=== PATIENT | male | born 1960 | race Caucasian/White ===

== ENCOUNTER 2020-01-15 13:42 | Emergency (ER) | payer OTHER, SELFPAY ==
--- NOTE | ~2020-01-15 | XR_ITS ---
XR foot RT 2V DATE: 01/15/2020 14:40 INDICATION: Fall. Pain across all digits. TECHNIQUE: AP and lateral views COMPARISON: None FINDINGS: There are transverse fractures of the necks of the second screw fourth metatarsal bones wit h minimal displacement or angulation. There is a linear oblique fracture through the junction of the metaphysis and proximal shaft of the proximal phalanx of the fifth digit. Diffuse osteopenia. Osteoarthritis at first metatarsophalangeal joint. Diffuse osteopenia. Plantar and posterior calcaneal enthesopathy. Plate and screws along the lateral malleolus and 2 screws through the medial malleolus. IMPRESSION: Fractures of the second through fourth metatarsal necks and fracture of the proximal phal anx of the fifth digit Reviewed, dictated and finalized at location A. IMPRESSION: Fractures of the second through fourth metatarsal necks and fractur e of the proximal phalanx of the fifth digit
--- NOTE | ~2020-01-15 | XR_ITS ---
XR ankle RT 2V DATE: 01/15/2020 14:40 INDICATION: Fall. Ankle and foot injury. TECHNIQUE: AP and lateral views COMPARISON: None FINDINGS: 2 screws are noted extending longitudinally through the medial malleolus into the distal ti bial metaphysis. There is a plate and screws along the distal fibular shaft and lateral malleolus. No recent fracture or dislocation of the ankle or disruption of the ankle mortise is evident. Plantar and posterior calcaneal enthesopathy. IMPRESSION: Status post ORIF old medial and lateral malleolar fractures Plantar and posterior calcaneal enthesopathy No recent fracture or dislocation of the ankle Reviewed, dictated and finalized at location A.
[2020-01-15 13:42] VITALS: BP 129/77; PULSE 89; RESP 16; TEMP 36.7; O2SAT 97
--- NOTE | 2020-01-15 14:00 | ECG_ITS ---
Measurements Intervals [place] Rate: 81 P: 50 SD: 152 QRS: 77 QRSD: 94 T: 20 QT: 344 QTc: 400 Interpretive Statements SINUS RHYTHM BASELINE ARTIFACT- I, II, III, AVR, AVL, AVF, V1-V6 BORDERLINE ECG Electronically Signed On 01-17-2020 7:15:53 CDT by Laith Peña D.O.
[2020-01-15] MEDS: KETOROLAC (*BKC) 60 MG/2 ML VIAL IM (14:14)
[2020-01-15 14:36] VITALS: BP 111/70; PULSE 85; RESP 14; O2SAT 97
--- NOTE | 2020-01-15 15:04 | ED.LOWEXIN ---
HPI - Extremity Injury (Lower) General Chief Complaint: Extremity Injury, Lower Stated Complaint: Hurt foot History of Present Illness HPI Narrative: This is a 59-year-old male with a chronic history of syncope is on my to drain had event earlier this morning at around 3:00 a.m. and fell causing pain swelling and bruising to the right foot and ankle, patient having pain rates about 8/10, with decreased range of motion in his foot and toes secondary to swelling and bruising. Patient denies any chest pain, there is no shortness of breath no headaches no blurry vision no nausea vomiting no abdominal pain. MD complaint: ankle injury and foot injury Onset (ago): hour(s) Type of Injury: inversion and eversion Place: home Severity: moderate Severity scale (1-10): 8 Relieving factors: NSAID and cold therapy Exacerbating factors: nothing Context: fall and walking Associated symptoms: swelling and able to partially bear weight Other symptoms: none Related Data Home Medications Medication Instructions Recorded Confirmed apixaban [Eliquis] 5 mg PO BID 01/15/20 01/15/20 duloxetine 60 mg PO DAILY 01/15/20 01/15/20 midodrine 10 mg PO TID 01/15/20 01/15/20 pantoprazole 20 mg PO QAM 01/15/20 01/15/20 Allergies Allergy/AdvReac Type Severity Reaction Status Date / Time No Known Allergies Allergy Unknown Unverified 09/16/08 08:15 Review of Systems Review of Systems: All systems reviewed & are unremarkable except as noted in HPI and below [facility] Past Medical History Medical History Syncope due to orthostatic hypotension Exam Const: General: no acute distress and alert Orientation/consciousness: patient oriented x3 HENMT: Head: normal to inspection Eyes: Conjunctivae: conjunctivae normal Pupils: Equal, round and reactive pupils present Neck: Neck: normal visual inspection, no lymphadenopathy and no meningeal signs Chest: Chest palpation & inspection: normal inspection of the chest Resp: Effort & Inspection: normal respiratory effort Auscultation: clear to auscultation bilaterally Cardio: Rate: regular rate Rhythm: regular rhythm GI: GI Palp: Yes Soft to palpation Back/Spine/Pelvis: Back: no CVA tenderness Skin: General skin exam: normal color Wounds: wounds noted ( Swelling and bruising to his right foot) Neuro: General: patient oriented x3, moves all extremities and no meningeal signs Extrem: General: normal to inspection Psych: Mental Status: mental status grossly normal Course Course Emergency Course: reassessment of patient pain level is improved discussed the x-ray results with fractures to his foot and patient was agreeable to go home with boot and follow-up with his orthopedic doctor. Vital Signs Vital signs: Vital Signs Temperature 36.7 C 01/15/20 13:42 Pulse Rate 89 01/15/20 13:42 Respiratory Rate 16 01/15/20 13:42 Blood Pressure 129/77 01/15/20 13:42 Pulse Oximetry 97 01/15/20 13:42 Temperature 36.7 C 01/15/20 13:42 Pulse Rate 85 01/15/20 14:36 Respiratory Rate 14 01/15/20 14:36 Blood Pressure 111/70 01/15/20 14:36 Pulse Oximetry 97 01/15/20 14:36 MDM - Extremity Injury (Lower) ECG Data EKG #1: ECG completion date: 01/15/20 ECG completion time: 14:18 Prior ECG tracings: not available for review EKG Interpretation: normal rate Critical Care Time Critical Care Time Critical Care Time: No Discharge Plan Discharge Clinical Impression: Foot fracture, right Qualifiers: Encounter type: initial encounter Fracture type: closed Qualified Code(s): S92.901A - Unspecified fracture of right foot, initial encounter for closed fracture Patient Disposition: Home, Self-Care Condition: Stable Instructions: Antibiotic Form, Foot Fracture in Adults (ED) Additional Instructions: Take medicine as prescribed and follow-up with orthopedic doctor on Friday. Prescriptions:
== END 2020-01-15 15:31 | disposition home or self-care (01) ==
PROVIDERS: Emergency Provider Emergency Medicine; PCP Family Medicine
DX: S92.901A Unspecified fracture of right foot, initial encounter for closed fracture (principal); W19.XXXA Unspecified fall, initial encounter
CPT/HCPCS: 73600; 73620; 93005; 96372; 99283; 99284; J1885; L2112

== ENCOUNTER 2020-06-15 14:19 | Inpatient (IN) | payer OTHER, SELFPAY ==
[2020-06-15] VITALS (27 sets, daily range): BP systolic 86–128; BP diastolic 64–102; PULSE 68–82; RESP 10–27; TEMP 36.1–36.3; O2SAT 85–100; BMI 34.6
--- NOTE | ~2020-06-15 | XR_ITS ---
EXAMINATION: XR knee LT 2V DATE: 06/15/2020 18:25 INDICATION: Left knee pain. Fall. TECHNIQUE: 2 views of left knee were obtained. COMPARISON: None. FINDINGS: Bone alignment is normal. No fracture. There is moderate osteoarthritis of medial compartme nt and mild osteoarthritis of lateral and patellofemoral compartments. There is a small knee joint ef fusion. IMPRESSION: 1. Moderate left knee osteoarthritis. 2. Small left knee joint effusion. Reviewed, dictated and finalized at location A. INE COMPOSITOR
--- NOTE | ~2020-06-15 | MR_ITS ---
EXAMINATION: MR cervical spine wo/w con EXAM DATE: 06/16/2020 12:46 INDICATION: Paresthesias, fall, on Eliquis. TECHNIQUE: Multi-sequential, multiplanar MR images of the cervical spine were obtained without contra st. Axial T2, axial T2 MERGE sequence. Sagittal T1, T2, T2 fat saturation images also obtained. Axi al T1 weighted sequence. Patient was then injected with 20 mL Multihance intravenous contrast and re imaged. Postcontrast axial and sagittal T1-weighted fat saturation sequences were obtained. There i s no prior study for comparison. FINDINGS: Study is limited due to patient motion. The spinal cord signal intensity and intrinsic mor phology is normal. Cervicomedullary junction is normal in appearance. There is evidence of moderate cervical facet arthropathy, but only mild cervical disc disease. Can't confidently evaluate degree o f stenosis to the neural foramen, but the central canal is widely patent, and probably no more than m ild to moderate neural foraminal stenosis at any given level. No definite areas of abnormal enhanceme nt. The vertebral bodies are aligned in the AP dimension. There are no suspicious marrow signal abnor malities. IMPRESSION: Limited exam demonstrating mild to moderate cervical spondylosis, normal cord signal. No central canal stenosis. Reviewed, dictated and finalized at location B. IMPRESSION: Limited exam demonstrating mild to moderate cervical spondylosis, n ormal cord signal. No central canal stenosis.
--- NOTE | ~2020-06-15 | MR_ITS ---
EXAMINATION: MR brain/brain stem wo/w con EXAM DATE: 06/16/2020 12:46 INDICATION: Fullness and tightness in head. Dizziness. Fall. Stroke. TECHNIQUE: Magnetic resonance imaging (MRI) of the brain/brain stem obtained without contrast. Sagit taisha T1, axial diffusion, gradient echo (T2*), T1, T2, FLAIR sequences obtained. Patient was then inj ected with 20 cc intravenous Multihance contrast. Axial and coronal postcontrast T1 weighted sequence s obtained. Correlation is made to head CT obtained earlier. FINDINGS: There are no areas of restricted diffusion to suggest acute infarction. There is no acute hemorrhage seen on the T2*, a hemosiderin sensitive sequence. No intraparenchymal brain mass lesion. Small region of old left temporal lobe encephalomalacia. There is mild prominence of the sulci and v entricles related to cerebral atrophy. There are no extra-axial collections. Flow voids are seen i n the cerebral arteries on the T2-weighted sequences consistent with their expected patency. The orb its are unremarkable. Soft tissue is unremarkable. IMPRESSION: 1. Small left temporal encephalomalacia. 2. Cerebral atrophy. Reviewed, dictated and finalized at location B. TERING FILTERING SUPERVISOR
--- NOTE | ~2020-06-15 | MR_ITS ---
EXAMINATION: MR lumbar spine wo/w con EXAM DATE: 06/16/2020 12:46 INDICATION: Low back pain TECHNIQUE: Multi-sequential, multiplanar MR images of the lumbar spine were obtained without contrast . Sagittal T1, T2, T2 fat saturation images. Axial T2 weighted images. Axial T1 weighted sequence. Patient was then injected with 20 mL Multihance intravenous contrast and reimaged. Postcontrast axi al and sagittal T1-weighted fat saturation sequences were obtained. There is no prior study for jean-claude corcoran. FINDINGS: There are no areas of abnormal enhancement on the post contrast images. The conus medullari s terminates at the T12-L1 level and has normal signal intensity and morphology. The vertebral carlos s are aligned in the AP dimension. Mild lumbar disc disease. There are no suspicious marrow signal ab normalities. Paraspinal soft tissue is unremarkable. Level by level evaluation: T12-L1: Disc does not extend beyond the endplate margin. Facet arthropathy: Mild left. Neural foraminal stenosis: No stenosis. Central canal stenosis: No stenosis. L1-L2: There is a mild diffuse disc bulge. Facet arthropathy: Mild. Neural foraminal stenosis: No stenosis. Central canal stenosis: No stenosis. L2-L3: There is a mild diffuse disc bulge. Facet arthropathy: Mild. Neural foraminal stenosis: Mild to moderate right, mild left. Central canal stenosis: No stenosis. L3-L4: There is a mild diffuse disc bulge. Facet arthropathy: Mild. Neural foraminal stenosis: Mild to moderate left, mild right. Central canal stenosis: No stenosis. L4-L5: There is a mild diffuse disc bulge. Facet arthropathy: Mild. Neural foraminal stenosis: Mild to moderate left, mild right. Central canal stenosis: No stenosis. L5-S1: There is a mild diffuse disc bulge. Facet arthropathy: Mild. Neural foraminal stenosis: Mild to moderate bilateral. Central canal stenosis: No stenosis. IMPRESSION: 1. Mild to moderate multilevel neural foraminal stenosis. 2. No acute findings. Reviewed, dictated and finalized at location B. OSTAT OPERATOR
--- NOTE | ~2020-06-15 | CT_ITS ---
EXAMINATION: CT brain wo con EXAM DATE: 06/15/2020 14:39 INDICATION: Dizziness. Left hemiparesis. TECHNIQUE: Spiral CT of the head was performed without contrast. Axial, coronal and sagittal images were reviewed. The dose-length product (DLP) for this examination was 605.33 mGy-cm. The exposure w as tailored according to patient size, and iterative reconstruction (ASIR) was used as additional dos e reduction technique. Comparison is made to prior examination from 10/11/2017. FINDINGS: Previously seen left temporal intraparenchymal hematoma has resolved, with some encephaloma lacia in the region. There is no acute intraparenchymal hemorrhage. No evidence of intraparenchymal brain mass lesion. No evidence of acute infarction. Please note that initial head CT has limited se nsitivity for small or acute infarctions. There is mild periventricular and subcortical hypodensity, nonspecific but probably related to small vessel ischemic disease. There is mild to moderate promin ence of the sulci and ventricles related to cerebral atrophy. There is intracranial carotid arterio sclerosis. There are no extra-axial collections. There is no mass effect or midline shift. The orb its are unremarkable. Soft tissue is unremarkable. The visualized sinuses and mastoid air cells are well aerated. IMPRESSION: 1. Small region left temporal encephalomalacia. 2. Chronic age related findings. Reviewed, dictated and finalized at location B. CHIPPER
--- NOTE | ~2020-06-15 | US_ITS ---
EXAMINATION: US carotid duplex BI EXAM DATE: 06/16/2020 11:58 INDICATION: Fullness, tightness in head. Stroke like symptoms. Intracranial arterial sclerosis. TECHNIQUE: Grayscale, color and pulsed Doppler images of the cervical carotid arteries were obtained . The degree of vessel stenosis is placed in one of the following categories: normal, <50% stenosis, 50-69% stenosis, >=70% stenosis but less than near-occlusion, near-occlusion, or occlusion. Note that percent stenosis relative to normal distal artery lumen diameter is indirectly measured from velocit y measurements as described by Rush, et al. Radiology 2003; 229:340-346. There is no prior study fo r comparison. FINDINGS: RIGHT SIDE: Right common carotid artery peak systolic velocity (PSV in cm/s): 100 Right bulb/internal carotid artery peak systolic velocity (PSV in cm/s): 70 Right internal carotid artery end diastolic velocity (EDV in cm/s): 29 Right ICA/CCA peak systolic ratio: 0.7 Right external carotid artery peak systolic velocity (PSV in cm/s): 79 Right vertebral artery antegrade flow: yes There is no focal plaque identified. LEFT SIDE: Left common carotid artery peak systolic velocity (PSV in cm/s): 132 Left bulb/internal carotid artery peak systolic velocity (PSV in cm/s): 96 Left internal carotid artery end diastolic velocity (EDV in cm/s): 36 Left ICA/CCA peak systolic ratio: 0.7 Left external carotid artery peak systolic velocity (PSV in cm/s): 66 Left vertebral artery antegrade flow: yes There is no focal plaque identified. IMPRESSION: 1. Normal right internal carotid artery. 2. Normal left internal carotid artery. > Reviewed, dictated and finalized at location B. HICS EDITOR
--- NOTE | ~2020-06-15 | CT_ITS ---
EXAMINATION: CT brain wo con EXAM DATE: 06/16/2020 10:49 INDICATION: pt c/o fullness and tightness in head . TECHNIQUE: Spiral CT of the head was performed without contrast. Axial, coronal and sagittal images were reviewed. The dose-length product (DLP) for this examination was 681.00 mGy-cm. The exposure w as tailored according to patient size, and iterative reconstruction (ASIR) was used as additional dos e reduction technique. Comparison is made to prior examination from 06/15/2020. FINDINGS: Again there is small region of left temporal encephalomalacia. There is no acute intraparen chymal hemorrhage. No evidence of intraparenchymal brain mass lesion. No evidence of acute infarcti on. Please note that initial head CT has limited sensitivity for small or acute infarctions. There i s mild periventricular and subcortical hypodensity, nonspecific but probably related to small vessel ischemic disease. There is mild to moderate prominence of the sulci and ventricles related to cereb ral atrophy. There is intracranial carotid arteriosclerosis. There are no extra-axial collections. There is no mass effect or midline shift. The orbits are unremarkable. Soft tissue is unremarkabl e. The visualized sinuses and mastoid air cells are well aerated. There is no interval change. IMPRESSION: 1. No acute intracranial findings. 2. Chronic age related findings. Reviewed, dictated and finalized at location B. DER OPERATOR
--- NOTE | ~2020-06-15 | XR_ITS ---
EXAMINATION: XR chest 1V INDICATION: Dizziness and chest heaviness TECHNIQUE: AP view of the chest is obtained. COMPARISON: 10/11/2017 FINDINGS: The lungs are free of acute opacities. There is no pleural effusion or pneumothorax. The ca rdiomediastinal silhouette is normal. There is mild osteoarthritis of the shoulders. IMPRESSION: 1. No acute cardiopulmonary abnormality. Reviewed, dictated and finalized at location A. ORIGINATOR
--- NOTE | 2020-06-15 14:24 | ECG_ITS ---
Measurements Intervals [place] Rate: 78 P: 63 RI: 145 QRS: 70 QRSD: 102 T: 15 QT: 373 QTc: 427 Interpretive Statements SINUS RHYTHM BORDERLINE ST-T WAVE ABNORMALITY- INFERIOR LEADS BASELINE ARTIFACT- I, II, III, AVR, AVL, AVF, V1-V3, V5-V6 BORDERLINE ECG Electronically Signed On 06-15-2020 15:28:42 RN CARDIAC by Laith Peña D.O.
[2020-06-15 14:35] LABS: Basophils Percent Auto 0.6 % (0.2-1.2); Eosinophils Absolute Auto 0.2 K/mm3 (0-0.3); Hematocrit 39.6 % (42.0-52.0); Immature Granulocyte Absolute 0.01 K/mm3 (0.00-0.031); Immature Granulocyte Percent A 0.1 % (0-0.5); Lymphocytes Absolute Auto 1.88 K/mm3 (0.9-3.2); Lymphocytes Percent Auto 26.9 % (18.3-44.2); Mean Corpuscular HGB Conc 35.4 g/dl (32-36); Mean Corpuscular Hemoglobin 35.8 pg (26-34); Mean Corpuscular Volume 101.3 fl (80-100); Mean Platelet Volume 8.8 fl (7.4-10.4); Monocytes Absolute Auto 0.8 K/mm3 (0.1-0.6); Neutrophils Percent Auto 57.4 % (45.5-73.1); Platelet Count Result 191 k/mm3 (150-375); Red Blood Count 3.91 M/mm3 (4.6-6.20); Red Cell Distribution Width 13.1 % (11.5-14.5)
[2020-06-15 14:43] LABS: Prothrombin Time 14.1 Seconds (11.1-14.7)
[2020-06-15 14:45] LABS: Alanine Aminotransferase 16 U/L (4-50); Albumin Level 3.6 g/dL (3.5-5.1); Alkaline Phosphatase 75 U/L (38-126); Anion Gap 3 mmol/L (8-16); Aspartate Amino Transferase 30 U/L (17-59); Bilirubin,Total 0.9 mg/dL (0.2-1.3); Blood Urea Nitrogen 13 mg/dL (9-20); Calcium 8.7 mg/dL (8.4-10.2); Carbon Dioxide 31 mmol/L (22-30); Chloride 101 mmol/L (98-107); Estimated CRCL calculation 91 ml/min; Estimated Glomerular Filt Rate > 60; Glucose 110 mg/dL (75-110); Potassium 3.5 mmol/L (3.4-5.0); Sodium 135 mmol/L (137-145)
[2020-06-15 14:57] LABS: Troponin I < 0.012 ng/mL (0.000-0.034)
[2020-06-15 15:17] LABS: Ethanol < 10 mg/dL (<10)
--- NOTE | 2020-06-15 16:40 | ED.NEUROSD ---
HPI - Neuro Symptoms/Deficit General Chief Complaint: Suspected CVA Stated Complaint: CVA resovled Source: patient and EMS Mode of arrival: EMS Limitations: no limitations History of Present Illness HPI Narrative: 59-year-old with a history of hypertension ,alcohol use, gastric Orel-en-Y surgery PE, DVT on Eliquis, CVA here with complaints of dizziness since morning associated with left upper extremity weakness and slurring of speech. Patient states that he had a fall last evening in front of his home denies any loss of consciousness however he states that he felt extremely dizzy after the fall and could not get the words out. He presently denies any headache. No history of nausea or vomiting or visual problems. He states that on his way to the ER his symptoms resolved. Onset (ago): hour(s) (1) Last Observed Normal: 13:00 Location: left arm Severity: moderate Quality: weak Relieving factors: none Exacerbating factors: none Context: sudden onset On Anticoagulants: Yes Related Data Home Medications Medication Instructions Recorded Confirmed apixaban [Eliquis] 5 mg PO BID 01/15/20 01/15/20 armodafinil 200 mg PO QAM 06/15/20 buspirone 10 mg PO BID 06/15/20 escitalopram oxalate 10 mg PO DAILY 06/15/20 ferrous sulfate 325 mg PO BID 06/15/20 fluoxetine 10 mg PO DAILY 06/15/20 pantoprazole 40 mg PO QAM 06/15/20 trazodone 100 mg PO HS 06/15/20 Allergies Allergy/AdvReac Type Severity Reaction Status Date / Time No Known Allergies Allergy Unknown Unverified 06/15/20 14:31 Review of Systems Review of Systems: All systems reviewed & are unremarkable except as noted in HPI and below Constitutional: Constitutional: Reports as per HPI Eyes: Eyes: Reports no additional eye complaints ENT: Reports as per HPI Cardiovascular: Cardiovascular: Reports no additional cardiovascular complaints Respiratory: Respiratory: Reports no additional respiratory complaints Musculoskeletal: Musculoskeletal: Reports no additional musculoskeletal complaints Neurologic: Reports as per HPI Endocrine: Endocrine: Reports no additional endocrine complaints PMFSH Past Medical History Medical History (Updated 06/15/20 @ 16:55 by Bal Finney MD) Syncope due to orthostatic hypotension Exam Narrative: Exam Narrative: GENERAL: Well-appearing, well-nourished, and in no acute distress. HEAD: Normocephalic, atraumatic. EYES: PERRLA and EOMI. ENT: Nares clear, no rhinorrhea or epistaxis. Mucous membranes moist. NECK: Supple. CHEST: Clear to auscultation. No respiratory distress. HEART: Regular rate and rhythm. No murmur heard. Normal peripheral pulses. ABDOMEN: Soft, nontender, nondistended, normal active bowel sounds. Right upper abdomen surgical scar EXTREMITIES: Normal range of motion. No edema. SKIN: Warm, dry, no rash. NEURO: No focal deficits. Alert and oriented x3. PSYCH: Normal mood and affect. Course Course Emergency Course: Patient still remains asymptomatic at this time I discussed labs, CT findings with the patient also discussed with Dr. Cyr recommended admission for observation. Discussed with Juliet who accepted the patient Vital Signs Vital signs: Vital Signs Temperature 36.3 C L 06/15/20 14:20 Pulse Rate 71 06/15/20 14:20 Respiratory Rate 17 06/15/20 14:20 Blood Pressure 101/90 06/15/20 14:20 Pulse Oximetry 100 06/15/20 14:20 Temperature 36.3 C L 06/15/20 14:20 Pulse Rate 71 06/15/20 14:20 Respiratory Rate 17 06/15/20 14:20 Blood Pressure 101/90 06/15/20 14:20 Pulse Oximetry 100 06/15/20 14:20 MDM - Neuro Symptoms/Deficit Lab Data Result diagrams: 06/15/20 14:27 06/15/20 14:27 Labs: Lab Results 06/15/20 06/15/20 06/15/20 Range/Units 14:27 14:27 14:27 WBC 7.0 (4.5-10.0) K/mm3 RBC 3.91 L (4.6-6.20) M/mm3 Hgb 14.0 (14.0-18.0) g/dL Hct 39.6 L (42.0-52.0) % MCV 101.3 H (80-100) fl MCH 35.8 H (26-3
--- NOTE | 2020-06-15 17:49 | PM.IMHP ---
H&P: HPI History of Present Illness Date/Time: 06/15/20 17:49 Chief complaint: CVA resovled Narrative: Johnie Mcqueen is a 59 year old male who has a history of having TIA and he stated that he had a CVA in the past. The patient told me that he was walking home on a sidewalk yesterday when he noticed that there was some gravelly substance on the sidewalk. Patient walks is pathway quite frequently but it was dark and could not see what was on the sidewalk. The patient stated that he slid on something and so his feet fly up in the air and he fell back onto his back and hit his head. The patient is on Eliquis. The patient stated that he went to the police department to have a incident report made but was not able to do so he said this occurred in [place]. The patient really did not have any symptoms yesterday but today he noticed that he had numbness and tingling to both of his arms he complained of back pain ear both of his kidneys. Left knee pain and neck pain. The patient did not take anything for discomfort. He stated that he had lower back pain and pain around his kidneys. The patient stated he felt like he was having stroke-like symptoms. No nodules were noted on his head. Patient stated that he is being seen for dizziness and that he just had a tilt-table test. The patient does have lateral nystagmus. However the patient stated he was not feeling dizzy last night. He had no nausea vomiting. No fever no chills. He stated that he had a ground level fall and that he had slipped on the substance that was on the sidewalk. Patient has no double vision but felt like he was having difficulty talking today. He said that he was stuttering today and his words were slurred. He had no focal weakness but his arms felt numb and tingling bilaterally he also stated that his right leg felt numbness and tingling as well. His chest x-ray was read as no acute cardiopulmonary abnormality. Head CT was read as small region left temporal encephalomalacia. Chronic age-related findings. Patient has no neurological deficits at this time. No problems with his vision. No focal weakness. Patient denies having any alcohol recently. His alcohol level was negative. Patient is being admitted observation date of service 06/15/2020 Review of Systems Review of Systems: All systems reviewed & are unremarkable except as noted in HPI and below Constitutional: Constitutional: Reports as per HPI and Reports no additional constitutional complaints Eyes: Eyes: Reports as per HPI and Reports no additional eye complaints ENT: Reports system reviewed and no additional complaints, except as documented and Reports Normal hearing present Cardiovascular: Cardiovascular: Reports no additional cardiovascular complaints Respiratory: Respiratory: Reports no additional respiratory complaints and Reports no additional respiratory complaints Gastrointestinal: Gastrointestinal: Reports as per HPI and Reports no additional gastrointestinal complaints Musculoskeletal: Musculoskeletal: Reports no additional musculoskeletal complaints Integumentary/Breasts: Skin/Breast: Reports system reviewed and no additional complaints, except as docu and Reports as per HPI Neurologic: Reports system reviewed and no additional complaints, except as documented, Reports as per HPI and Reports Normal hearing present Psychiatric: Psychiatric: Reports no additional psychiatric complaints and Reports as per HPI Endocrine: Endocrine: Reports no additional endocrine complaints Hematologic/Lymphatic: Hematologic/Lymphatic: Reports no additional hematologic/lymphatic complaints Allergic/Immunologic: Allergic/Immunologic: Reports no additional allergic/immunologic complaints [facility] Past Medical History Medical History (Updated 06/15/20 @ 17:58 by Juliet Sandoval NP) Anxiety Brain TIA History of deep vein thrombosis History of fracture of clavicle Iron deficiency anemia Peripheral vascular
--- NOTE | 2020-06-15 19:30 | ADMGEN ---
This patient, Johnie Mcqueen, was admitted to Medical Room 345-. Patient/family oriented to hospital policies and general routines including ID bracelet, bed and alarms, visiting hours, pain management, procedures, bathroom and other care routines, personal items, smoking policy, room service/diet, and visiting hours. Information on how to activate the Rapid Response Team has been discussed. Patient/Family are encouraged to report perceived risks to care and to ask questions if they do not understand what they are told or what they should do.
[2020-06-15] MEDS: MORPHINE SULFATE (*CRX) 4 MG/ML INJ IV PUSH ×2 (20:03→23:54)
[2020-06-15 20:21] LABS: Folic Acid 13.7 ng/mL (2.76->20)
[2020-06-15] MEDS: traZODone HCL 50 MG TABLET 100 MG PO (20:53)
[2020-06-16] VITALS (10 sets, daily range): BP systolic 98–119; BP diastolic 63–67; PULSE 68–97; RESP 14–16; TEMP 36.1–36.2; O2SAT 97–99
--- NOTE | 2020-06-16 | ECHO_ITS ---
Patient Info Name: Johnie Mcqueen Age: 59 years : 1960 Gender: Male Ht: 72 in Wt: 254 lbs BSA: 2.46 m2 HR: 85 bpm BP: 128 / 70 mmHg Heart Rhythm: Sinus Rhythm Technical Quality: Fair Exam Date: 06/16/2020 1:36 PM Exam Location: [facility] Patient Status: Outpatient Admit Date: 06/15/2020 Staff Ordering Physician: Juliet Sandoval NP Grid Inspector: Wayne Trejo RDCS Attending Provider: Audelia Noriega PA-C Referring Physician: Lori FINCH; Exam Type: CA echo dop bubble study w con Study Info Indications 436.0 - CVA Complete two-dimensional, color flow and Doppler transthoracic echocardiogram is performed with contrast to opacify the left ventricle and to improve the deliniation of the left ventricle endocardial borders. Complete two-dimensional, color flow and Doppler transthoracic echocardiogram is performed with agitated saline. Contrast/Agitated Saline Contrast/Ag. Saline: Definity Amount: 3.00 ml Administered By: Zakia Hinds RN Existing IV Access: Yes Contrast/Ag. Saline: Agitated Saline Amount: 18.00 ml Administered By: Zakia Hinds RN Existing IV Access: Yes History/Risk Factors Stroke like symptoms; syncope, orthostatic HoTN. Summary 1. Left ventricular chamber dimension is normal. 2. Left ventricular systolic function is normal, estimated at 60-65%. 3. The left ventricular diastolic function is grade I diastolic dysfunction. 4. E/e' 4 is not elevated. Left Ventricle E/e' 4 is not elevated. Left ventricular chamber dimension is normal. Left ventricular systolic function is normal, estimated at 60-65%. The left ventricular diastolic function is grade I diastolic dysfunction. Right Ventricle Right ventricular chamber dimension is normal. Right ventricular systolic function is normal. Left Atria Left atrial chamber dimension is normal. Right Atria Right atrial chamber dimension is normal. Atrial Septum Agitated saline injection with and without valsalva maneuver opacified right sided cardiac chamber without obvious shunt to left sided cardiac chambers. Intact interatrial septum visualized by agitated saline imaging. Aortic Valve The aortic valve is trileaflet. There is no aortic valve stenosis. There is no aortic valve regurgitation. Pulmonic Valve The pulmonic valve is not well visualized. Mitral Valve There is no mitral valve stenosis. There is no mitral valve regurgitation. Tricuspid Valve There is no tricuspid valve regurgitation. Pericardium/Pleural There is no pericardial effusion. Inferior Vena Cava Normal inferior vena cava with >50% collapse upon inspiration consistent with normal right atrial pressure, 5 mmHg. Aorta The aortic root size at the sinus of Valsalva is normal. Left Ventricular Outflow Tract Name Value Normal LVOT 2D LVOT Diameter 2.5 cm Mitral Valve Name Value Normal MV Doppler
[2020-06-16 06:11] LABS: Basophils Percent Auto 0.7 % (0.2-1.2); Eosinophils Absolute Auto 0.2 K/mm3 (0-0.3); Eosinophils Percent Auto 3.4 % (0-4.4); Hematocrit 37.1 % (42.0-52.0); Immature Granulocyte Absolute 0.02 K/mm3 (0.00-0.031); Immature Granulocyte Percent A 0.3 % (0-0.5); Lymphocytes Absolute Auto 1.54 K/mm3 (0.9-3.2); Lymphocytes Percent Auto 25.2 % (18.3-44.2); Mean Corpuscular Hemoglobin 35.8 pg (26-34); Mean Corpuscular Volume 102.2 fl (80-100); Monocytes Absolute Auto 0.6 K/mm3 (0.1-0.6); Monocytes Percent Auto 10.1 % (2.6-8.5); Neutrophils Absolute Auto 3.7 K/mm3 (1.3-6.7); Neutrophils Percent Auto 60.3 % (45.5-73.1); Platelet Count Result 173 k/mm3 (150-375); Red Blood Count 3.63 M/mm3 (4.6-6.20); Red Cell Distribution Width 12.9 % (11.5-14.5); White Blood Count 6.1 K/mm3 (4.5-10.0)
[2020-06-16 06:22] LABS: Alanine Aminotransferase 27 U/L (4-50); Albumin Level 3.2 g/dL (3.5-5.1); Alkaline Phosphatase 94 U/L (38-126); Anion Gap 5 mmol/L (8-16); Aspartate Amino Transferase 113 U/L (17-59); Bilirubin,Total 1.3 mg/dL (0.2-1.3); Blood Urea Nitrogen 11 mg/dL (9-20); Calcium 8.3 mg/dL (8.4-10.2); Carbon Dioxide 31 mmol/L (22-30); Chloride 103 mmol/L (98-107); Estimated CRCL calculation 101 ml/min; Estimated Glomerular Filt Rate > 60; Glucose 97 mg/dL (75-110); Magnesium 1.9 mg/dL (1.6-2.3); Potassium 3.3 mmol/L (3.4-5.0); Sodium 139 mmol/L (137-145)
[2020-06-16 07:09] LABS: Thyroid Stimulating Hormone Reflex 0.803 uIU/mL (0.465-4.68)
[2020-06-16] MEDS: FERROUS SULFATE 324 MG TABLET PO ×2 (08:26→17:35)
[2020-06-16] MEDS: POTASSIUM CHLORIDE 20 MEQ TABLET 40 MEQ PO (08:26)
[2020-06-16] MEDS: PANTOPRAZOLE 40 MG TABLET PO (08:26)
[2020-06-16] MEDS: FLUoxetine HCL 10 MG CAPSULE PO (08:26)
--- NOTE | 2020-06-16 10:37 | WPDNEURCNPN ---
Assessment and Plan Assessment and plan (1) Anxiety: Code(s): F41.9 - Anxiety disorder, unspecified Status: Chronic (2) Brain TIA: Code(s): G45.9 - Transient cerebral ischemic attack, unspecified Status: Acute (3) Syncope due to orthostatic hypotension: Code(s): I95.1 - Orthostatic hypotension Status: Acute Additional Plan considering the history of the TIA further evaluation recommended Consult date: 06/16/20 Time Seen: 10:15 HPI: Johnie Mcqueen is a 59 year old male admitted to the hospital with history of having had TIA in the past reportedly he was walking on the sidewalk he is sedated on something feet fly up in the air he fell backwards on his back and hit his head patient reportedly is on Eliquis he made the incident report at the [employer] office complaint of numbness and tingling in both upper extremities and the back pain left knee pain and neck pain no swelling was noted on the patient's head but he was complaining of dizziness without nausea or vomiting, patient does have ongoing history of anxiety and TIA in addition to the DVT in the past and also iron deficiency anemia and at times syncopal episode due to orthostatic hypotension. Evaluation up until now includes the CT scan of the brain which revealed small left temporal encephalomalacia with chronic age-related finding, chest x-ray is negative, left knee x-rays the compatible with moderate left knee osteoarthritis with small left knee joint effusion Review of Systems Review of Systems: All systems reviewed & are unremarkable except as noted in HPI and below PMFSH Past Medical History Medical History Anxiety Brain TIA History of deep vein thrombosis History of fracture of clavicle Iron deficiency anemia Peripheral vascular disease Syncope due to orthostatic hypotension Surgical History Surgical History History of ankle surgery ORIF right ankle tib-fib fracture History of gastric bypass Hx laparoscopic cholecystectomy Hx of cholecystectomy S/P arthroscopic surgery of left knee Family History Family History Mother Breast cancer Father Suicide Social History Social History Social History: the patient is . 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 He has 3 biological children 1 being a special needs child. Who is 11 years old. The patient is working on getting disability. The patient stated that he wants his sister Leti to be his durable power consumer attorney for healthcare. He desires to be a full code. He denies using any alcohol. He said that he had to go to rehab in the past for alcohol abuse but only drinks once or twice a week any drinks beer. He is a lifelong nonsmoker does needs any marijuana or illicit drugs. Smoking status: Never smoker Alcohol intake: current Drinks per week: 6 Substance use: never Living arrangements: with family Occupation/Education: unemployed Gender identity (if verbalized by the patient): Male Sexual Orientation (if Verbalized by the Patient): Straight or Heterosexual Spiritual care concerns: No Meds Home Medications and Allergies Home Medications Medication Instructions Recorded Confirmed Type apixaban [Eliquis] 5 mg PO BID 01/15/20 06/15/20 History armodafinil 200 mg PO QAM 06/15/20 06/15/20 History buspirone 10 mg PO BID 06/15/20 06/15/20 History duloxetine 90 mg PO DAILY 06/15/20 06/15/20 History ferrous sulfate 325 mg PO BID 06/15/20 06/15/20 History hydroxyzine HCl 25 mg PO HS 06/15/20 06/15/20 History pantoprazole 40 mg PO QAM 06/15/20 06/15/20 History trazodone 150 mg PO HS 06/15/20 06/15/20 History Allergies Allergy/AdvReac Type Severity Reaction Status Date / Time No Known Allergies Allergy Unknown
[2020-06-16] MEDS: PERFLUTREN LIPID MICROSPHERES 1.5 ML VIAL DILUTED TO 10 ML TOTAL VOLUME (14:00)
[2020-06-16] MEDS: MIDODRINE HCL 2.5 MG TABLET 5 MG PO (17:35)
[2020-06-16] MEDS: MORPHINE SULFATE (*CRX) 4 MG/ML INJ IV PUSH (17:36)
[2020-06-16] MEDS: traZODone HCL 50 MG TABLET 100 MG PO (21:58)
[2020-06-16] MEDS: hydrOXYzine HCL 25 MG TABLET PO (21:58)
--- NOTE | 2020-06-16 22:08 | PM.IMPN ---
Progress Note: A&P Assessment and Plan (1) Brain TIA: Code(s): G45.9 - Transient cerebral ischemic attack, unspecified Status: Acute Assessment and Plan: The patient has a hx of CVA and TIA. He reported that he suffered a fall due to loose gravel and fell backwards hitting his head. He is on eliquis prior to admission for hx of DVT/PE. He reported onset of numbness and tingling in both arms and difficulty talking with stuttering and slurred speech. He also complained of back and neck pain after the fall. He underwent MRI of the brain, cervical spine, and lumbar spine which showed no acute abnormalities. Echocardiogram with bubble study shows normal EF 60-65% and grade 1 diastolic dysfunction without evidence of shunt and intact interatrial septum. Carotid doppler US is negative for caraotid stenosis. Check lipid panel and start high-intensity statin and aspirin given hx of CVA and TIA. Neurology is following. Management per neurology. Anticipate that eliquis may be resumed tomorrow as long as his neuro status is stable overnight given no evidence of hemorrhage on imaging. Continue neuro checks q4 horus. (2) Anxiety: Code(s): F41.9 - Anxiety disorder, unspecified Status: Chronic Assessment and Plan: Continue hydroxyzine. (3) Iron deficiency anemia: Code(s): D50.9 - Iron deficiency anemia, unspecified Status: Chronic Assessment and Plan: Continue to monitor hemoglobin and hematocrit. Vitamin B12 and folate are sufficient. (4) Minor head injury: Qualifiers: Encounter type: initial encounter Qualified Code(s): S09.90XA - Unspecified injury of head, initial encounter Code(s): S09.90XA - Unspecified injury of head, initial encounter Status: Acute Assessment and Plan: He reported a fall 06/14 and stated that he hit his head. He has no headache, abrasion, laceration, ecchymosis, or hematoma. Eliquis was held pending further workup and close monitoring with neuro checks. Neurological status is stable. Will likely resume eliquis tomorrow if his neurological condition remains stable. (5) Orthostatic hypotension: Code(s): I95.1 - Orthostatic hypotension Status: Acute Assessment and Plan: The patient has a hx of syncope due to orthostatic hypotension. Continue midodrine. Check orthostatic BP. (6) History of venous thromboembolism: Code(s): Z86.718 - Personal history of other venous thrombosis and embolism Status: Acute Assessment and Plan: He has a hx of DVT/PE. Eliquis was held given fall with head trauma. Workup shows no evidence of hemorrhage. Will plan to resume eliquis tomorrow. (7) Hypokalemia: Code(s): E87.6 - Hypokalemia Status: Acute Assessment and Plan: Potassium was 3.3 today. Replace with 40mEq PO potassium. He takes 20mEq potassium at home. Continue home potassium supplementation and continue to monitor. Subjective Date/time seen: 06/16/20 Late entry. Pt was seen at 10:15AM after I received a call from the RN that the pt felt he had crashed and felt the same way he did prior to admission. I ordered STAT CT brain and came to evaluate the patient. He did report a fall in which he hit his head and is on eliquis. I performed NIH Stroke Scale which was 0. He appeared anxious and complained of numbness in both feet and both hands, however sensation was intact to light touch at all extremities. Neurology was called and recommended his tests be performed STAT and the RN facilitated this. He was calm during my assessment. He said his symptoms started when he got up to walk to the bathroom. He is currently undergoing an outpatient workup for dizziness including tilt able testing. He has a hx of syncope due to orthostatic hypotension and he is on midodrine for that. Review of Systems Review of Systems: All systems reviewed & are unremarkable except as noted in H
[2020-06-17] VITALS (12 sets, daily range): BP systolic 82–117; BP diastolic 52–69; PULSE 52–86; RESP 14–16; TEMP 35.9–36.4; O2SAT 98–99
[2020-06-17 06:49] LABS: Hematocrit 38.1 % (42.0-52.0); Hemoglobin 12.8 g/dL (14.0-18.0); Mean Corpuscular HGB Conc 33.6 g/dl (32-36); Mean Corpuscular Hemoglobin 35.2 pg (26-34); Mean Corpuscular Volume 104.7 fl (80-100); Mean Platelet Volume 8.9 fl (7.4-10.4); Platelet Count Result 175 k/mm3 (150-375); Red Blood Count 3.64 M/mm3 (4.6-6.20); Red Cell Distribution Width 13.4 % (11.5-14.5); White Blood Count 5.6 K/mm3 (4.5-10.0)
[2020-06-17 07:11] LABS: Alanine Aminotransferase 20 U/L (4-50); Albumin Level 3.1 g/dL (3.5-5.1); Alkaline Phosphatase 76 U/L (38-126); Anion Gap 2 mmol/L (8-16); Aspartate Amino Transferase 35 U/L (17-59); Bilirubin,Total 0.9 mg/dL (0.2-1.3); Blood Urea Nitrogen 13 mg/dL (9-20); Calcium 8.6 mg/dL (8.4-10.2); Carbon Dioxide 34 mmol/L (22-30); Chloride 101 mmol/L (98-107); Cholesterol 138 mg/dL (0-200); Estimated CRCL calculation 101 ml/min; Estimated Glomerular Filt Rate > 60; Glucose 83 mg/dL (75-110); HDL Direct 46 mg/dL; Magnesium 2.1 mg/dL (1.6-2.3); Potassium 3.5 mmol/L (3.4-5.0); Sodium 137 mmol/L (137-145); Triglycerides 117 mg/dL (<150)
[2020-06-17 07:22] LABS: LDL Cholesterol Direct 69 mg/dL
[2020-06-17] MEDS: MORPHINE SULFATE (*CRX) 4 MG/ML INJ IV PUSH ×2 (08:22→18:14)
[2020-06-17] MEDS: ASPIRIN 81 MG ENTERIC TABLET PO (09:32)
[2020-06-17] MEDS: FERROUS SULFATE 324 MG TABLET PO ×2 (09:32→18:19)
[2020-06-17] MEDS: ATORVASTATIN 40 MG TABLET PO (09:32)
[2020-06-17] MEDS: MIDODRINE HCL 2.5 MG TABLET 5 MG PO ×3 (09:32→18:18)
[2020-06-17] MEDS: APIXABAN 5 MG TABLET PO ×2 (09:33→21:13)
[2020-06-17] MEDS: PANTOPRAZOLE 40 MG TABLET PO (09:34)
[2020-06-17] MEDS: POTASSIUM CHLORIDE 20 MEQ TABLET.ER PO (09:36)
[2020-06-17] MEDS: POTASSIUM CHLORIDE 20 MEQ TABLET 40 MEQ PO (11:30)
[2020-06-17] MEDS: LORazepam (*CRX) 0.5 MG TABLET PO (14:54)
--- NOTE | 2020-06-17 16:43 | PM.IMPN ---
Progress Note: A&P Assessment and Plan (1) Brain TIA: Code(s): G45.9 - Transient cerebral ischemic attack, unspecified Status: Acute Assessment and Plan: The patient has a hx of CVA and TIA. He reported that he suffered a fall due to loose gravel and fell backwards hitting his head. He is on eliquis prior to admission for hx of DVT/PE. He reported onset of numbness and tingling in both arms and difficulty talking with stuttering and slurred speech. He also complained of back and neck pain after the fall. He underwent MRI of the brain, cervical spine, and lumbar spine which showed no acute abnormalities. Echocardiogram with bubble study shows normal EF 60-65% and grade 1 diastolic dysfunction without evidence of shunt and intact interatrial septum. Carotid doppler US is negative for caraotid stenosis. Check lipid panel and start high-intensity statin and aspirin given hx of CVA and TIA. Neurology is following. Management per neurology. Anticipate that eliquis may be resumed tomorrow as long as his neuro status is stable overnight given no evidence of hemorrhage on imaging. Continue neuro checks q4. and if does well possible discharge 06/18 (2) Anxiety: Code(s): F41.9 - Anxiety disorder, unspecified Status: Chronic Assessment and Plan: Continue hydroxyzine. (3) Iron deficiency anemia: Code(s): D50.9 - Iron deficiency anemia, unspecified Status: Chronic Assessment and Plan: Continue to monitor hemoglobin and hematocrit. Vitamin B12 and folate are sufficient. (4) Minor head injury: Qualifiers: Encounter type: initial encounter Qualified Code(s): S09.90XA - Unspecified injury of head, initial encounter Code(s): S09.90XA - Unspecified injury of head, initial encounter Status: Acute Assessment and Plan: He reported a fall 06/14 and stated that he hit his head. He has no headache, abrasion, laceration, ecchymosis, or hematoma. Eliquis was held pending further workup and close monitoring with neuro checks. Neurological status is stable. Will likely resume eliquis tomorrow if his neurological condition remains stable. (5) Orthostatic hypotension: Code(s): I95.1 - Orthostatic hypotension Status: Acute Assessment and Plan: The patient has a hx of syncope due to orthostatic hypotension. Continue midodrine and add low-dose fludrocortisone. Check orthostatic BP. (6) History of venous thromboembolism: Code(s): Z86.718 - Personal history of other venous thrombosis and embolism Status: Acute Assessment and Plan: He has a hx of DVT/PE. Eliquis was held given fall with head trauma. Workup shows no evidence of hemorrhage. Will plan to resume eliquis near future (7) Hypokalemia: Code(s): E87.6 - Hypokalemia Status: Acute Assessment and Plan: Potassium was 3.3 today. Replace with 40mEq PO potassium. He takes 20mEq potassium at home. Continue home potassium supplementation and continue to monitor. especially with addition of fludrocortisone which will tend to make potassium lower Subjective Date/time seen: 06/17/20 16:43 Interval history: date of visit 06/17. 59-year-old white male with previous DVT who had paresthesias and syncopal episode prior to admission. Continue to complain of left arm paresthesias. Lot of his symptoms are somewhat chronic and has been evaluated with no definite etiology, and does significant orthostatic hypotension. Exam Narrative: Exam Narrative: Blood pressure 116/70 pulse 52 and regular neck supple no adenopathy lungs clear CV regular rate rhythm abdomen soft nontender bowel sounds normal active extremities without edema distal pulses are 2+ neuro alert cooperative no focal deficits today Objective Data Vital Signs Vital Signs: Vital Signs - 24 hr 06/16/20 20:00 06/16/20 20:28 06/16/20 20:53 Temperature 36.2 C L Pulse
[2020-06-17] MEDS: traZODone HCL 50 MG TABLET 100 MG PO (21:13)
[2020-06-17] MEDS: hydrOXYzine HCL 25 MG TABLET PO (21:13)
[2020-06-18] VITALS (11 sets, daily range): BP systolic 92–123; BP diastolic 53–75; PULSE 48–92; RESP 12–20; TEMP 35.7–36.3; O2SAT 97–99
[2020-06-18 06:31] LABS: Anion Gap 4 mmol/L (8-16); Blood Urea Nitrogen 11 mg/dL (9-20); Calcium 8.5 mg/dL (8.4-10.2); Carbon Dioxide 32 mmol/L (22-30); Chloride 104 mmol/L (98-107); Estimated CRCL calculation 101 ml/min; Estimated Glomerular Filt Rate > 60; Glucose 88 mg/dL (75-110); Sodium 140 mmol/L (137-145)
[2020-06-18 07:02] LABS: Cortisol Random 2.99 ug/dL
[2020-06-18] MEDS: MORPHINE SULFATE (*CRX) 4 MG/ML INJ IV PUSH ×3 (08:26→21:52)
[2020-06-18] MEDS: COSYNTROPIN 0.25 MG/ML VIAL IV PUSH (08:32)
[2020-06-18] MEDS: APIXABAN 5 MG TABLET PO ×2 (08:38→20:04)
[2020-06-18] MEDS: POTASSIUM CHLORIDE 20 MEQ TABLET.ER PO (08:38)
[2020-06-18] MEDS: ATORVASTATIN 40 MG TABLET PO (08:38)
[2020-06-18] MEDS: ASPIRIN 81 MG ENTERIC TABLET PO (08:38)
[2020-06-18] MEDS: PANTOPRAZOLE 40 MG TABLET PO (08:38)
[2020-06-18] MEDS: FLUDROCORTISONE ACETATE 0.1 MG TABLET PO (08:38)
[2020-06-18] MEDS: MIDODRINE HCL 2.5 MG TABLET 5 MG PO ×3 (08:39→17:21)
[2020-06-18] MEDS: FERROUS SULFATE 324 MG TABLET PO ×2 (08:39→17:21)
--- NOTE | 2020-06-18 15:55 | PM.IMPN ---
Progress Note: A&P Assessment and Plan (1) Brain TIA: Code(s): G45.9 - Transient cerebral ischemic attack, unspecified Status: Acute Assessment and Plan: The patient has a hx of CVA and TIA. He reported that he suffered a fall due to loose gravel and fell backwards hitting his head. He is on eliquis prior to admission for hx of DVT/PE. He reported onset of numbness and tingling in both arms and difficulty talking with stuttering and slurred speech. He also complained of back and neck pain after the fall. He underwent MRI of the brain, cervical spine, and lumbar spine which showed no acute abnormalities. Echocardiogram with bubble study shows normal EF 60-65% and grade 1 diastolic dysfunction without evidence of shunt and intact interatrial septum. Carotid doppler US is negative for caraotid stenosis. started high-intensity statin and aspirin given hx of CVA and TIA. Neurology is following. Management per neurology. eliquis resumed 06/17. Continue neuro checks q4 horus. (2) Anxiety: Code(s): F41.9 - Anxiety disorder, unspecified Status: Chronic Assessment and Plan: Continue hydroxyzine. and added prn ativan (3) Iron deficiency anemia: Code(s): D50.9 - Iron deficiency anemia, unspecified Status: Chronic Assessment and Plan: Continue to monitor hemoglobin and hematocrit. Vitamin B12 and folate are sufficient. (4) Minor head injury: Qualifiers: Encounter type: initial encounter Qualified Code(s): S09.90XA - Unspecified injury of head, initial encounter Code(s): S09.90XA - Unspecified injury of head, initial encounter Status: Acute Assessment and Plan: He reported a fall 06/14 and stated that he hit his head. He has no headache, abrasion, laceration, ecchymosis, or hematoma. Eliquis was held initially but restarted now. . Neurological status is stable. (5) Orthostatic hypotension: Code(s): I95.1 - Orthostatic hypotension Status: Acute Assessment and Plan: The patient has a hx of syncope due to orthostatic hypotension. Continue midodrine. and added fludrocortisone today cortisol suppression test normal. today (6) History of venous thromboembolism: Code(s): Z86.718 - Personal history of other venous thrombosis and embolism Status: Acute Assessment and Plan: He has a hx of DVT/PE. Eliquis was held given fall with head trauma. Workup shows no evidence of hemorrhage. resumed 06/17 (7) Hypokalemia: Code(s): E87.6 - Hypokalemia Status: Acute Assessment and Plan: Potassium was 4.0 today. . Continue home potassium supplementation and continue to monitor. Subjective Date/time seen: 06/18/20 15:55 Interval history: date of visit 06/18. 59-year-old white male with previous DVT who had paresthesias and syncopal episode prior to admission. Continue to complain of left arm paresthesias. Lot of his symptoms are somewhat chronic and has been evaluated with no definite etiology, and does have significant orthostatic hypotension. light headed and shakey yesterday with documented low bp Exam Narrative: Exam Narrative: Blood pressure 104/64 pulse 76 and regular neck supple no adenopathy lungs clear CV regular rate rhythm abdomen soft nontender bowel sounds normal active extremities without edema distal pulses are 2+ neuro alert cooperative no focal deficits today Objective Data Vital Signs Vital Signs: Vital Signs - 24 hr 06/17/20 16:00 06/17/20 20:00 06/17/20 21:10 Temperature 36.2 C L Pulse Rate 58 L 68 66 Pulse Rate [Right] 52 L 68 Respiratory Rate 16 Blood Pressure 90/52 L 97/58 L Pulse Oximetry 99 06/18/20 00:00 06/18/20 00:13 06/18/20 04:44 Temperature Pulse Rate 48 L 88 66 Pulse Rate [Right] 50 L 53 L Respiratory Rate 20 Blood Pressure Pulse Oximetry 97 06/18/20 06:00 06/18/20 08:00 06/18/20 11:04 Te
[2020-06-18] MEDS: hydrOXYzine HCL 25 MG TABLET PO (20:03)
[2020-06-18] MEDS: traZODone HCL 50 MG TABLET 100 MG PO (20:04)
[2020-06-18] MEDS: LORazepam (*CRX) 0.5 MG TABLET PO (20:14)
[2020-06-19] VITALS: PULSE 55
[2020-06-19 04:00] VITALS: PULSE 67
[2020-06-19] MEDS: MORPHINE SULFATE (*CRX) 4 MG/ML INJ IV PUSH (05:28)
[2020-06-19 05:44] VITALS: BP 103/50; PULSE 62; RESP 14; TEMP 36.2; O2SAT 100
[2020-06-19 06:36] LABS: Anion Gap 2 mmol/L (8-16); Blood Urea Nitrogen 11 mg/dL (9-20); Calcium 8.5 mg/dL (8.4-10.2); Carbon Dioxide 32 mmol/L (22-30); Chloride 104 mmol/L (98-107); Estimated CRCL calculation 112 ml/min; Estimated Glomerular Filt Rate > 60; Glucose 89 mg/dL (75-110); Potassium 3.7 mmol/L (3.4-5.0); Sodium 138 mmol/L (137-145)
[2020-06-19 08:00] VITALS: BP 102/62; BP 126/56; BP 93/66; PULSE 110; PULSE 88; PULSE 92
[2020-06-19] MEDS: FLUDROCORTISONE ACETATE 0.1 MG TABLET PO (09:00)
[2020-06-19] MEDS: FERROUS SULFATE 324 MG TABLET PO (09:00)
[2020-06-19] MEDS: APIXABAN 5 MG TABLET PO (09:00)
[2020-06-19] MEDS: ATORVASTATIN 40 MG TABLET PO (09:00)
[2020-06-19] MEDS: ASPIRIN 81 MG ENTERIC TABLET PO (09:00)
[2020-06-19] MEDS: MIDODRINE HCL 2.5 MG TABLET 5 MG PO (09:00)
[2020-06-19] MEDS: POTASSIUM CHLORIDE 20 MEQ TABLET.ER PO (09:00)
[2020-06-19] MEDS: PANTOPRAZOLE 40 MG TABLET PO (09:01)
[2020-06-19] MEDS: LORazepam (*CRX) 0.5 MG TABLET PO (09:15)
[2020-06-19] MEDS: ACETAMINOPHEN 325 MG TABLET 650 MG PO (09:15)
--- NOTE | 2020-06-19 10:19 | WPDNEUROPN ---
Progress Note: A&P Assessment and Plan (1) Orthostatic hypotension: Code(s): I95.1 - Orthostatic hypotension Status: Acute (2) Syncope due to orthostatic hypotension: Code(s): I95.1 - Orthostatic hypotension Status: Acute Additional Plan once orthostatics are stable Miriam evaluated completely he will be discharged but he will definitely benefit from the EMG and nerve conduction studies of the lower extremities as an outpatient Review of Systems Review of Systems: All systems reviewed & are unremarkable except as noted in HPI and below Exam Narrative: Exam Narrative: awake alert cooperative in no obvious acute distress, his speech not dysphasic not dysarthric ,not dysphonic ,the cranial nerve examination is normal, motor and sensory examination is normal ,plantars are downgoing, heart regular,lungs clear ,abdomen is soft Objective Data Vital Signs Vital Signs: Vital Signs - 24 hr 06/18/20 11:04 06/18/20 12:00 06/18/20 14:00 Temperature 36.1 C L Pulse Rate 92 65 76 Pulse Rate [Right] 53 L Respiratory Rate 16 Blood Pressure 92/59 L 104/67 103/63 Pulse Oximetry 98 06/18/20 16:00 06/18/20 20:00 06/18/20 20:32 Temperature 36.3 C L Pulse Rate 62 64 64 Pulse Rate [Right] Respiratory Rate 12 Blood Pressure 123/75 Pulse Oximetry 99 06/19/20 00:00 06/19/20 04:00 06/19/20 05:44 Temperature 36.2 C L Pulse Rate 55 L 67 62 Pulse Rate [Right] Respiratory Rate 14 Blood Pressure 103/50 L Pulse Oximetry 100 06/19/20 08:00 Temperature Pulse Rate 110 H Pulse Rate [Right] Respiratory Rate Blood Pressure 93/66 L Pulse Oximetry Intake/Output Intake/Output: Intake & Output 06/16/20 06/17/20 06/18/20 06/19/20 23:59 23:59 23:59 23:59 Intake Total 1470 1650 1720 880 Output Total 100 1000 1050 900 Balance 1370 650 670 -20 Meds/Results Medications: Active Medications Generic Name Dose Route Start Last Admin Trade Name Freq PRN Reason Stop Dose Admin Acetaminophen 650 mg 06/15/20 17:35 06/19/20 09:15 Acetaminophen 325 Mg Tablet PO 650 mg Q4H PRN Administration Mild Pain (1-3) or Fever Apixaban 5 mg 06/17/20 09:20 06/19/20 09:00 Apixaban 5 Mg Tablet PO 5 mg Q12HR GREG Administration Aspirin 81 mg 06/17/20 09:00 06/19/20 09:00 Aspirin 81 Mg Enteric Tablet PO 81 mg QAM GREG Administration Atorvastatin Calcium 40 mg 06/17/20 09:00 06/19/20 09:00 Atorvastatin 40 Mg Tablet PO 40 mg DAILY GREG Administration Ferrous Sulfate 324 mg 06/16/20 09:00 06/19/20 09:00 Ferrous Sulfate 324 Mg Tablet PO 324 mg BID GREG Administration Fludrocortisone Acetate 0.1 mg 06/18/20 09:00 06/19/20 09:00 Fludrocortisone Acetate 0.1 Mg Tablet PO 0.1 mg DAILY GREG Administration Hydroxyzine HCl 25 mg 06/16/20 21:00 06/18/20 20:03 Hydroxyzine Hcl 25 Mg Tablet PO 25 mg HS GREG Administration Lorazepam 0.5 mg 06/17/20 14:18 06/19/20 09:15 Lorazepam (*Crx) 0.5 Mg Tablet PO 0.5 mg Q6H PRN Administration Anxiety Midodrine 10 mg 06/19/20 13:00 Midodrine Hcl 10 Mg Tablet PO TID GREG Morphine Sulfate 4 mg 06/15/20 17:35 06/19/20 05:28 Morphine Sulfate (*Crx) 4 Mg/Ml Inj IV PUSH 4 mg Q2H PRN Administration Pain Rated 7-10 Ondansetron HCl 4 mg 06/15/20 17:35 Ondansetron Inj 4 Mg/2 Ml Vial IV PUSH Q4H PRN Nausea Pantoprazole Sodium 40 mg 06/16/20 09:00 06/19/20 09:01 Pantoprazole 40 Mg Tablet PO 40 mg QAM GREG Administration Potassium Chloride 20 meq 06/17/20 09:00 06/19/20 09:00 Potassium Chloride 20 Meq Tablet.Er PO 20 meq DAILY GREG Administration Trazodone HCl 100 mg 06/15/20 21:00 06/18/20 20:04 Trazodone Hcl 50 Mg Tablet PO 100 mg HS GREG Administration Radiology Results: ITS Impressions Chest X-Ray 06/15/20 14:48 IMPRESSION: 1. No acute cardiopulmonary abnormality. Knee X-Ray 06/15/20
--- NOTE | 2020-06-19 18:23 | PM.DS ---
DS: Admitting Diagnosis Admitting Diagnosis Admitting Diagnosis: TIA DS: Discharge Diagnosis Discharge Diagnosis (1) Brain TIA: Code(s): G45.9 - Transient cerebral ischemic attack, unspecified Status: Acute Assessment and Plan: The patient has a hx of CVA and TIA. He reported that he suffered a fall due to loose gravel and fell backwards hitting his head. He is on eliquis prior to admission for hx of DVT/PE. He reported onset of numbness and tingling in both arms and difficulty talking with stuttering and slurred speech. He also complained of back and neck pain after the fall. He underwent MRI of the brain, cervical spine, and lumbar spine which showed no acute abnormalities. Echocardiogram with bubble study shows normal EF 60-65% and grade 1 diastolic dysfunction without evidence of shunt and intact interatrial septum. Carotid doppler US is negative for caraotid stenosis. started high-intensity statin and aspirin given hx of CVA and TIA. eliquis resumed 06/17. follow-up with primary care. (2) Anxiety: Code(s): F41.9 - Anxiety disorder, unspecified Status: Chronic Assessment and Plan: Continue hydroxyzine. and added prn ativan (3) Iron deficiency anemia: Code(s): D50.9 - Iron deficiency anemia, unspecified Status: Chronic Assessment and Plan: Continue to monitor hemoglobin and hematocrit. Vitamin B12 and folate are sufficient. (4) Minor head injury: Qualifiers: Encounter type: initial encounter Qualified Code(s): S09.90XA - Unspecified injury of head, initial encounter Code(s): S09.90XA - Unspecified injury of head, initial encounter Status: Acute Assessment and Plan: He reported a fall 06/14 and stated that he hit his head. He has no headache, abrasion, laceration, ecchymosis, or hematoma. Eliquis was held initially but restarted now. . Neurological status is stable. (5) Orthostatic hypotension: Code(s): I95.1 - Orthostatic hypotension Status: Acute Assessment and Plan: The patient has a hx of syncope due to orthostatic hypotension. Continue midodrine and increased to 10 mg t.i.d.. and added fludrocortisone 0.1 mg daily cortisol suppression test normal. patient uses support stockings and has had a tilt-table test. re-educated patient on rising slowly. Follow-up with primary care with the new medications to reassess blood pressure (6) History of venous thromboembolism: Code(s): Z86.718 - Personal history of other venous thrombosis and embolism Status: Acute Assessment and Plan: He has a hx of DVT/PE. Eliquis was held given fall with head trauma. Workup shows no evidence of hemorrhage. resumed 06/17 (7) Hypokalemia: Code(s): E87.6 - Hypokalemia Status: Acute Assessment and Plan: Continue home potassium supplementation and continue to monitor. with outpatient BMP in 1 week especially since added fludrocortisone DS: Summary Hospital Course Hospital Course: 59-year-old white male with orthostatic hypotension and history of CVA admitted with paresthesias and TIA symptoms. Workup negative including MRI of the brain, echocardiogram, and no arrhythmias noted on monitor. Cortisol stimulation test revealed no adrenal insufficiency. Midodrine was increased to 10 mg t.i.d. and fludrocortisone was added 0.1 mg daily BMP in 1 week and follow-up with primary care in 1-2 week Time Spent with Patient Time attestation: Total time spent providing and/or coordinating discharge services: 35 minutes Exam Narrative: Exam Narrative: condition on discharge blood pressure 126/56 pulse 86 but still with orthostatic changes lungs clear CV regular rate rhythm no murmurs abdomen soft nontender extremities without edema good distal pulses neuro alert pleasant cooperative no gross focal deficits up about stable to be discharged home with continued
== END 2020-06-19 12:00 | disposition home or self-care (01) | DRG 69 ==
LOC: ANHED 16:55 → ANH3MED 18:50
PROVIDERS: Nurse Practitioner; Physician Assistant; Admitting Provider Internal Medicine; Emergency Provider Family Medicine; PCP Family Medicine; Visit Provider Internal Medicine
DX: G45.9 Transient cerebral ischemic attack, unspecified (principal); F41.9 Anxiety disorder, unspecified; D50.9 Iron deficiency anemia, unspecified; I95.1 Orthostatic hypotension; E87.6 Hypokalemia; I73.9 Peripheral vascular disease, unspecified; S09.8XXA Other specified injuries of head, initial encounter; W18.39XA Other fall on same level, initial encounter; Z86.718 Personal history of other venous thrombosis and embolism; Z86.73 Personal history of transient ischemic attack (TIA), and cerebral infarction without residual deficits; Z79.01 Long term (current) use of anticoagulants; Z90.49 Acquired absence of other specified parts of digestive tract; Z98.84 Bariatric surgery status; Z86.711 Personal history of pulmonary embolism
CPT/HCPCS: 36415; 70450; 70553; 71045; 72156; 72158; 73560; 80048; 80053; 80061; 80307; 82533; 82607; 82728; 82746; 83735; 84443; 84484; 85025; 85027; 85610; 93005; 93880; 94003; 96374; 96375; 96376; 97110; 97116; 97162; 97165; 97535; 99285; A9270; A9577; C8929; G0378; J0834; J2270; Q9957

== ENCOUNTER 2020-06-21 19:28 | Emergency (ER) | payer OTHER, SELFPAY ==
--- NOTE | ~2020-06-21 | CT_ITS ---
EXAMINATION: CT abdomen pelvis w con DATE: 06/21/2020 20:47 INDICATION: Left lower abdominal pain and left hip pain following trauma TECHNIQUE: Computed tomography (CT) of the abdomen and pelvis was performed with 100 cc Omnipaque 350 intravenous contrast. Automated exposure control and iterative reconstruction technique were employe d. Exam dose: 1444.92 mGy-cm total exam DLP. COMPARISON: None. FINDINGS: There is mild discoid atelectasis and/or scarring in the lower lobes at the lung bases. Normal heart size. No pericardial or pleural effusion. Small sliding hiatal hernia. Status post gastric bypass surgery. Status post cholecystectomy. No hepatic, splenic, pancreatic, adrenal or renal space-occupying mass lesion is detected. Probable s mall nonobstructing mid left renal calculus. Normal caliber of the abdominal aorta. No intraperitoneal or retroperitoneal or pelvic mass lesion or adenopathy. Normal appendix. No bowel obstruction, bowel wall thickening, pneumatosis or intraperitoneal free air . There is a prominent multiloculated cystic lesion with narrow zone of transition, defined margins in the right femoral neck and intertrochanteric area, unchanged in appearance since 10/03/2008, most like ly benign. Suspicious osteolytic or osteoblastic lesions. IMPRESSION: Status post gastric bypass surgery. Status post cholecystectomy Small sliding hiatal hernia Small probable nonobstructing mid left renal calculus Reviewed, dictated and finalized at [facility]. Reviewed, dictated and finalized at [facility]. R [employer]CH[employer]
[2020-06-21 20:13] VITALS: BP 130/76; PULSE 75; RESP 20; TEMP 36.9; O2SAT 100
[2020-06-21 20:14] LABS: Basophils Absolute Auto 0.04 K/mm3 (0.00-0.10); Basophils Percent Auto 0.7 % (0.0-1.0); Eosinophils Absolute Auto 0.06 K/mm3 (0.02-0.50); Hematocrit 39.3 % (40.0-54.0); Hemoglobin 13.4 g/dL (14.0-18.0); Immature Granulocyte Absolute 0.02 K/mm3 (0.00-0.00); Immature Granulocyte Percent A 0.3 % (0.0-0.0); Lymphocytes Absolute Auto 1.38 K/mm3 (1.10-4.50); Lymphocytes Percent Auto 24.1 % (18.0-42.0); Mean Corpuscular HGB Conc 34.1 g/dL (32.0-36.0); Mean Corpuscular Hemoglobin 34.9 pg (27.0-31.0); Mean Corpuscular Volume 102.3 fL (78.0-102.0); Mean Platelet Volume 8.6 fl (8.7-11.0); Monocytes Absolute Auto 0.78 K/mm3 (0.10-0.90); Monocytes Percent Auto 13.6 % (2.0-11.0); Neutrophils Absolute Auto 3.5 K/mm3 (1.7-7.2); Neutrophils Percent Auto 60.3 % (50.0-70.0); Platelet Count Result 225 K/mm3 (150-420); Red Blood Count 3.84 M/mm3 (4.70-6.10); Red Cell Distribution Width 12.9 % (11.6-14.4); White Blood Count 5.7 K/mm3 (4.8-10.8)
[2020-06-21 20:22] LABS: Anion Gap 7 mmol/L (8-16); Blood Urea Nitrogen 9 mg/dL (7-18); Calcium 8.5 mg/dL (8.5-10.1); Carbon Dioxide 30 mmol/L (21-32); Chloride 106 mmol/L (98-108); Estimated CRCL calculation 85 ml/min; Estimated Glomerular Filt Rate > 60; Glucose 117 mg/dL (70-99); Osmolality Calculated 295 mOsm/kg (285-295); Potassium 3.6 mmol/L (3.5-5.1); Sodium 143 mmol/L (136-145)
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
[2020-06-21 21:37] VITALS: BP 134/77; PULSE 69; RESP 20; O2SAT 99
== END 2020-06-21 21:57 | disposition home or self-care (01) ==
PROVIDERS: Emergency Provider Emergency Medicine; PCP Family Medicine
DX: M25.552 Pain in left hip (principal)
CPT/HCPCS: 36415; 74177; 80048; 85025; 99282; 99284; Q9965

== ENCOUNTER 2020-10-26 08:29 | Emergency (ER) | payer OTHER, SELFPAY ==
--- NOTE | ~2020-10-26 | XR_ITS ---
EXAMINATION: XR knee LT 2V DATE: 10/26/2020 09:11 INDICATION: Severe medial left knee pain post injury with palpable pop . TECHNIQUE: Weight AP and crosstable lateral views of the left knee were obtained. COMPARISON: 06/15/2020 FINDINGS: Bone alignment is normal. No fracture. Medial compartment predominant tricompartmental osteoarthritis of the left knee with unchanged moderate joint space narrowing the medial compartment and small yadira inal osteophytes in the lateral and patellofemoral compartments. Small to moderate-sized left knee pinky int effusion without layering lipohemarthrosis. IMPRESSION: 1. Moderate medial compartment predominant tricompartmental osteoarthritis at the left knee. 2. Small to moderate left knee joint effusion. Reviewed, dictated and finalized at [facility]. IMPRESSION: 1. Moderate medial compartment predominant tricompartmental osteoarthritis at t he left knee. 2. Small to moderate left knee joint effusion.
[2020-10-26 08:43] VITALS: BP 121/75; PULSE 77; RESP 18; TEMP 36.8; O2SAT 100
[2020-10-26] MEDS: KETOROLAC (*BKC) 60 MG/2 ML VIAL IM (08:55)
--- NOTE | 2020-10-26 09:29 | ED.LOWEXIN ---
HPI - Extremity Injury (Lower) General Chief Complaint: Extremity Injury, Lower Stated Complaint: left knee pain Source: patient History of Present Illness HPI Narrative: this is a 60-year-old gentleman that presents with left knee pain after he fell and twisted his knee, states that he heard a pop and subsequently has some swelling and tenderness in the medial aspect of his left knee with decreased range of motion secondary to pain and swelling currently rates his pain at 8/10, has had gastric bypass in the past and is unable to take NSAIDs, has taken Tylenol with minimal relief. complaint: knee injury Onset (ago): day(s) Injury: Left: knee ( felt a pop and subsequent pain with swelling) Type of Injury: inversion Place: home Severity: severe Severity scale (1-10): 8 Relieving factors: cold therapy and immobilization Exacerbating factors: weight bearing, movement and palpation Context: fall Associated symptoms: swelling Other symptoms: none Related Data Home Medications Medication Instructions Recorded Confirmed Eliquis 5 mg PO BID 01/15/20 06/21/20 armodafinil 200 mg PO QAM 06/15/20 06/21/20 buspirone 10 mg PO TID 06/15/20 06/21/20 duloxetine 90 mg PO DAILY 06/15/20 06/21/20 hydroxyzine HCl 25 mg PO HS 06/15/20 06/21/20 pantoprazole 40 mg PO QAM 06/15/20 06/21/20 trazodone 150 mg PO HS 06/15/20 06/21/20 acetaminophen 500 mg PO PRN PRN 06/16/20 06/21/20 potassium chloride 20 meq PO DAILY 06/16/20 06/21/20 Allergies Allergy/AdvReac Type Severity Reaction Status Date / Time No Known Allergies Allergy Unknown Verified 07/04/20 11:24 Review of Systems Review of Systems: All systems reviewed & are unremarkable except as noted in HPI and below PMFSH Past Medical History Medical History Anxiety Brain TIA History of deep vein thrombosis History of fracture of clavicle Iron deficiency anemia Peripheral vascular disease Syncope due to orthostatic hypotension Surgical History Surgical History History of ankle surgery ORIF right ankle tib-fib fracture History of gastric bypass Hx laparoscopic cholecystectomy Hx of cholecystectomy S/P arthroscopic surgery of left knee Family History Family History Mother Breast cancer Father Suicide Social History Social History Social History: the patient is . 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 He has 3 biological children 1 being a special needs child. Who is 11 years old. The patient is working on getting disability. The patient stated that he wants his sister Leti to be his durable power assistant prosecuting attorney for healthcare. He desires to be a full code. He denies using any alcohol. He said that he had to go to rehab in the past for alcohol abuse but only drinks once or twice a week any drinks beer. He is a lifelong nonsmoker does needs any marijuana or illicit drugs. Smoking status: Never smoker Alcohol intake: current Drinks per week: 6 Substance use: never Gender identity (if verbalized by the patient): Male Spiritual care concerns: No Exam Const: General: no acute distress Orientation/consciousness: patient oriented x3 HENMT: Head: normal to inspection Eyes: Conjunctivae: conjunctivae normal Pupils: Equal, round and reactive pupils present Neck: Neck: normal visual inspection, no lymphadenopathy and no meningeal signs Chest: Chest palpation & inspection: normal inspection of the chest Cardio: Rate: regular rate Rhythm: regular rhythm Urinary Catheter: Urinary Catheter: patent and draining Back/Spine/Pelvis: Back: no CVA tenderness Skin: General skin exam: normal color Rashes: no rashes Neuro: General: patient oriented x3 Extrem: Other: Swelling and tenderness medial
== END 2020-10-26 09:46 | disposition home or self-care (01) ==
PROVIDERS: Emergency Provider Emergency Medicine; PCP Family Medicine
DX: S83.92XA Sprain of unspecified site of left knee, initial encounter (principal); W19.XXXA Unspecified fall, initial encounter
CPT/HCPCS: 73560; 96372; 99283; J1885

== ENCOUNTER 2021-04-25 14:27 | Outpatient (RCR) | payer OTHER, SELFPAY ==
--- NOTE | 2021-04-25 17:19 | PTOPEVAL ---
Thank you for referring Johnie Mcqueen to [facility].? The patient is scheduled to be seen for therapy? ____x/week for ___ weeks. Please review, sign, date and return this plan of care SELENA. I agree with and certify that the following plan of care is medically necessary. Referring Physician Date Admitting Provider: Attending Provider: oneal stevens Referring Provider: SHARRI Outpatient Evaluation Start: 04/25/21 14:30 Freq: Status: Active Protocol: Document 04/25/21 14:33 [facility] (Rec: 04/25/21 15:30 [facility] [id number]) Therapy Assessment Status Assessment Status Assessment Status Evaluation Outpatient Past Medical History Neurological History Hx Cerebrovascular Accident (CVA) Yes Hx Other Neurological Disorders Yes: NUMBNESS LEFT HAND Cardiovascular History Hx Deep Vein Thrombosis Yes Respiratory History Hx Asthma Yes Hx Sleep Apnea Yes Gastrointestinal History Hx Cholecystectomy Yes Hx Gastroesophageal Reflux Disease Yes Hx Other Gastrointestinal Disorders Yes: GASTRIC BYPASS 2006; [facility] Genitourinary History Hx Genitourinary Disorders No Significant History Musculoskeletal History Hx Arthritis Yes Hx Back Injury Yes Hx Back Pain Yes Hx Fractures Yes Hx Orthopedic Surgery Yes Hematological History Hx Anemia Yes Endocrine History Hx Endocrine Disorders No Significant History HEENT History Hx Tonsillectomy Yes Hx Deviated Septum Yes Integumentary History Hx Skin Disorders No Significant History Reproductive History Hx Reproductive Disorders No Significant History Psychosocial History Hx Anxiety Yes Hx Depression Yes Pain History History of Any Previous or Ongoing No Significant History Instance of Pain Anesthesia History Hx Anesthesia Reactions No Significant History Other History Hx Other Medical Conditions Yes: SYNCOPE Evaluation Information Problem Diagnosis abnormal gait Onset 04/11/21 Subjective Information patient reports he had a Query Text:As Reported By Patient/ stroke 10/11/17. he reports he Family then had another stroke on . he reports he has blood clots in the lungs and has been on elequis for 2 years. he reports he was on this before his first stroke. he reports he is having trouble using the walker. he reports
--- NOTE | 2021-08-08 07:22 | PCPTNOTE ---
08/08/21 - patient has not been to skilled PT in over 3 months. he has been called and reports no plans to return to skilled PT. as of this date, all progress towards goals will be taken from his most recent evaluation/note. PABLO
== END 2021-05-01 23:59 | disposition home or self-care (01) ==
LOC: CHSPT 14:27
DX: R26.9 Unspecified abnormalities of gait and mobility (principal); I69.30 Unspecified sequelae of cerebral infarction
CPT/HCPCS: 97110; 97162

== ENCOUNTER 2021-05-14 16:44 | Emergency (ER) | payer OTHER, SELFPAY ==
--- NOTE | ~2021-05-14 | CT_ITS ---
EXAMINATION: CT brain wo con EXAM DATE: 05/14/2021 18:32 INDICATION: Fall on Plavix. Pain @ base of skull after fall yesterday with dizziness. TECHNIQUE: Spiral CT of the head was performed without contrast. Axial, coronal and sagittal images were reviewed. The dose-length product (DLP) for this examination was 756.67 mGy-cm. The exposure w as tailored according to patient size, and iterative reconstruction (ASIR) was used as additional dos e reduction technique. Comparison is made to prior examination from 06/16/2020. FINDINGS: Small old left temporal lobe infarction unchanged. There is no acute intraparenchymal hemor rhage. No evidence of intraparenchymal brain mass lesion. No evidence of acute infarction. Please note that initial head CT has limited sensitivity for small or acute infarctions. There is mild periv entricular and subcortical hypodensity, nonspecific but probably related to small vessel ischemic dis ease. There is moderate prominence of the sulci and ventricles related to cerebral atrophy. There is intracranial carotid arteriosclerosis. There are no extra-axial collections. There is no mass e ffect or midline shift. The orbits are unremarkable. Soft tissue is unremarkable. The visualized s inuses and mastoid air cells are well aerated. IMPRESSION: 1. No acute intracranial findings. 2. Chronic age related findings. 3. Old small left temporal lobe infarction. Reviewed, dictated and finalized at [facility].
--- NOTE | 2021-05-14 16:59 | ED.FALL ---
HPI - Fall General Chief Complaint: Fall Stated Complaint: low blood pressure Source: patient and RN notes reviewed Mode of arrival: ambulatory Limitations: no limitations History of Present Illness HPI Narrative: patient states he has chronic problems with hypotension. He has been falling quite a bit at home and is working with specialists on this problem. He states that he fell last night and hit the back of his head says, it bled quite a bit and he had a laceration but he did not come to the hospital last evening. He comes in today because he has been lightheaded dizzy and since he is on Plavix and hit his head he wanted to be checked out. complaint: fall Onset (ago): hour(s) (18) Fall from: standing Fall witnessed: no Place fall occurred: home Loss of consciousness: minutes (15) Symptoms prior to fall: none Location of injury: head Severity: moderate Quality: dull and aching Associated symptoms (after fall): headache and lightheaded Related Data Home Medications Medication Instructions Recorded Confirmed Eliquis 5 mg PO BID 01/15/20 05/14/21 armodafinil 200 mg PO QAM 06/15/20 05/14/21 buspirone 10 mg PO TID 06/15/20 05/14/21 duloxetine 90 mg PO DAILY 06/15/20 05/14/21 hydroxyzine HCl 25 mg PO HS 06/15/20 05/14/21 pantoprazole 40 mg PO QAM 06/15/20 05/14/21 trazodone 150 mg PO HS 06/15/20 05/14/21 acetaminophen 500 mg PO PRN PRN 06/16/20 05/14/21 Allergies Allergy/AdvReac Type Severity Reaction Status Date / Time No Known Allergies Allergy Unknown Verified 07/04/20 11:24 Review of Systems Review of Systems: All systems reviewed & are unremarkable except as noted in HPI and below Constitutional: Constitutional: Denies chills and Denies fever(s) PMFSH Past Medical History Medical History Anxiety Brain TIA History of deep vein thrombosis History of fracture of clavicle Iron deficiency anemia Peripheral vascular disease Syncope due to orthostatic hypotension Surgical History Surgical History History of ankle surgery ORIF right ankle tib-fib fracture History of gastric bypass Hx laparoscopic cholecystectomy Hx of cholecystectomy S/P arthroscopic surgery of left knee Family History Family History Mother Breast cancer Father Suicide Social History Social History Social History: the patient is . 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 He has 3 biological children 1 being a special needs child. Who is 11 years old. The patient is working on getting disability. The patient stated that he wants his sister Leti to be his durable power pharmacy technician trainee for healthcare. He desires to be a full code. He denies using any alcohol. He said that he had to go to rehab in the past for alcohol abuse but only drinks once or twice a week any drinks beer. He is a lifelong nonsmoker does needs any marijuana or illicit drugs. Smoking status: Never smoker Alcohol intake: current Drinks per week: 6 Substance use: never Gender identity (if verbalized by the patient): Male Sexual Orientation (if Verbalized by the Patient): Straight or Heterosexual Spiritual care concerns: No Exam Const: General: healthy appearing, no acute distress and alert Nutritional Appearance: well nourished Orientation/consciousness: patient oriented x3 HENMT: Head: contusion right occipital and laceration right occipital linear; not actively bleeding, no foreign body present and not superficial 3 cm Ears: external ears normal Mouth: Yes moist mucous membranes Eyes: Conjunctivae: conjunctivae normal Pupils: Equal, round and reactive pupils present EOM: EOMs intact bilaterally Neck: Neck: normal visual inspection Resp: Effort & Inspection: normal respiratory effort Auscul
[2021-05-14 17:19] VITALS: BP 109/77; PULSE 92; RESP 22; TEMP 36.7; O2SAT 97
[2021-05-14 17:30] VITALS: BP 68/40; PULSE 96; RESP 22; O2SAT 96
[2021-05-14 18:40] VITALS: BP 112/60; PULSE 88; RESP 18; O2SAT 98
[2021-05-14 19:19] VITALS: BP 109/80; PULSE 72; RESP 18; O2SAT 96
== END 2021-05-14 19:23 | disposition home or self-care (01) ==
PROVIDERS: Emergency Provider Emergency Medicine; PCP Family Medicine
DX: S00.03XA Contusion of scalp, initial encounter (principal); S01.01XA Laceration without foreign body of scalp, initial encounter; I95.9 Hypotension, unspecified; R42 Dizziness and giddiness; I73.9 Peripheral vascular disease, unspecified; D50.9 Iron deficiency anemia, unspecified; F41.9 Anxiety disorder, unspecified; Z98.84 Bariatric surgery status; Z86.73 Personal history of transient ischemic attack (TIA), and cerebral infarction without residual deficits; Z86.718 Personal history of other venous thrombosis and embolism; Z79.01 Long term (current) use of anticoagulants; Z90.49 Acquired absence of other specified parts of digestive tract
CPT/HCPCS: 70450; 99282; 99284

== ENCOUNTER 2021-12-04 13:31 | Emergency (ER) | payer OTHER, SELFPAY ==
--- NOTE | ~2021-12-04 | XR_ITS ---
EXAMINATION: XR chest 2V DATE: 12/04/2021 14:26 INDICATION: Dyspnea. Congestion. TECHNIQUE: Frontal and lateral views of the chest were obtained. COMPARISON: Chest single view 06/15/2020, CT abdomen and pelvis 06/21/2020 FINDINGS: There is mild atelectasis in left lower lung zone. No pleural effusion or pneumothorax. The heart size is normal. There is an old healed fracture of left sixth rib. IMPRESSION: 1. Mild atelectasis in left lower lung zone. Reviewed, dictated and finalized at location A.
[2021-12-04 13:43] VITALS: BP 128/80; PULSE 98; RESP 16; TEMP 36.7; O2SAT 98
--- NOTE | 2021-12-04 13:43 | ED.SOB ---
HPI - SOB/Dyspnea General Chief Complaint: Shortness of Breath/Dyspnea Stated Complaint: CONGESTED SOB Time Seen by Provider: 12/04/21 13:42 Source: patient and RN notes reviewed Mode of arrival: ambulatory Limitations: no limitations History of Present Illness MD elicited complaint: shortness of breath and cough Onset (ago): week(s) (2) Timing: intermittent Severity: moderate Exacerbating factors: exertion Relieving factors: nothing Associated symptoms: cough, sputum production, chest congestion and other ( feels like he is retaining fluid in his abdomen) Treatment prior to arrival: none Related Data Home oxygen amount: none Home Medications Medication Instructions Recorded Confirmed Eliquis 5 mg PO BID 01/15/20 12/04/21 armodafinil 200 mg PO QAM 06/15/20 12/04/21 buspirone 10 mg PO TID 06/15/20 12/04/21 duloxetine 90 mg PO DAILY 06/15/20 12/04/21 hydroxyzine HCl 25 mg PO HS 06/15/20 12/04/21 pantoprazole 40 mg PO QAM 06/15/20 12/04/21 trazodone 150 mg PO HS 06/15/20 12/04/21 acetaminophen 500 mg PO PRN PRN 06/16/20 12/04/21 donepezil 10 mg PO DAILY 12/04/21 12/04/21 pyridostigmine bromide 60 mg PO BID 12/04/21 12/04/21 quetiapine 50 mg PO DAILY 12/04/21 12/04/21 Allergies Allergy/AdvReac Type Severity Reaction Status Date / Time No Known Allergies Allergy Unknown Verified 12/04/21 13:47 Review of Systems Review of Systems: All systems reviewed & are unremarkable except as noted in HPI and below Constitutional: Constitutional: Denies chills and Denies fever(s) ENT: Reports sore throat Cardiovascular: Cardiovascular: Denies chest pain and Denies rapid heart rate PMF Past Medical History Medical History Anxiety Brain TIA History of deep vein thrombosis History of fracture of clavicle Iron deficiency anemia Peripheral vascular disease Syncope due to orthostatic hypotension Surgical History Surgical History History of ankle surgery ORIF right ankle tib-fib fracture History of gastric bypass Hx laparoscopic cholecystectomy Hx of cholecystectomy S/P arthroscopic surgery of left knee Family History Family History Mother Breast cancer Father Suicide Social History Social History Social History: the patient is . 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 He has 3 biological children 1 being a special needs child. Who is 11 years old. The patient is working on getting disability. The patient stated that he wants his sister Leti to be his durable power defense attorney for healthcare. He desires to be a full code. He denies using any alcohol. He said that he had to go to rehab in the past for alcohol abuse but only drinks once or twice a week any drinks beer. He is a lifelong nonsmoker does needs any marijuana or illicit drugs. Smoking status: Never smoker Alcohol intake: current Drinks per week: 6 Substance use: never Gender identity (if verbalized by the patient): Male Sexual Orientation (if Verbalized by the Patient): Straight or Heterosexual Spiritual care concerns: No Exam Const: General: healthy appearing, no acute distress and alert Nutritional Appearance: well nourished Orientation/consciousness: patient oriented x3 HENMT: Head: normal to inspection Ears: external ears normal Face and sinus: normal facial exam Eyes: Conjunctivae: conjunctivae normal Pupils: Equal, round and reactive pupils present EOM: EOMs intact bilaterally Neck: Neck: normal visual inspection and no lymphadenopathy Resp: Effort & Inspection: normal respiratory effort Auscultation: clear to auscultation bilaterally Cardio: Rate: regular rate Rhythm: regular rhythm GI: GI Palp: Yes Soft to palpation and No Tenderness to palpation present (GI) A
[2021-12-04 14:11] LABS: Basophils Absolute Auto 0.03 K/mm3 (0.00-0.10); Basophils Percent Auto 0.4 % (0.0-1.0); Eosinophils Absolute Auto 0.26 K/mm3 (0.02-0.50); Eosinophils Percent Auto 3.6 % (1.0-6.0); Hematocrit 41.1 % (40.0-54.0); Hemoglobin 13.8 g/dL (14.0-18.0); Immature Granulocyte Absolute 0.02 K/mm3 (0.00-0.00); Immature Granulocyte Percent A 0.3 % (0.0-0.0); Lymphocytes Absolute Auto 1.78 K/mm3 (1.10-4.50); Lymphocytes Percent Auto 24.6 % (18.0-42.0); Mean Corpuscular HGB Conc 33.6 g/dL (32.0-36.0); Mean Corpuscular Hemoglobin 32.9 pg (27.0-31.0); Mean Corpuscular Volume 98.1 fL (78.0-102.0); Mean Platelet Volume 8.7 fl (8.7-11.0); Monocytes Percent Auto 9.7 % (2.0-11.0); Neutrophils Absolute Auto 4.5 K/mm3 (1.7-7.2); Neutrophils Percent Auto 61.4 % (50.0-70.0); Platelet Count Result 336 K/mm3 (150-420); Red Blood Count 4.19 M/mm3 (4.70-6.10); Red Cell Distribution Width 11.8 % (11.6-14.4); White Blood Count 7.2 K/mm3 (4.8-10.8)
[2021-12-04 14:26] LABS: Influenza A QL RT-PCR Negative (Negative); Influenza B QL RT-PCR Negative (Negative); SARS-CoV-2 RNA PCR Positive (Negative)
[2021-12-04 14:30] LABS: Alanine Aminotransferase 17 U/L (16-63); Alkaline Phosphatase 95 U/L (46-116); Anion Gap 6 mmol/L (8-16); Aspartate Amino Transferase 21 U/L (15-37); Bilirubin,Total 0.3 mg/dL (0.00-1.00); Blood Urea Nitrogen 8 mg/dL (7-18); Calcium 8.5 mg/dL (8.5-10.1); Carbon Dioxide 28 mmol/L (21-32); Chloride 105 mmol/L (98-108); Estimated Glomerular Filt Rate > 60; Glucose 95 mg/dL (70-99); Magnesium 2.2 mg/dL (1.8-2.4); NT Pro B Type Natriuretic Pept 139 pg/mL (0-125); Osmolality Calculated 286 mOsm/kg (285-295); Potassium 4.2 mmol/L (3.5-5.1); Sodium 139 mmol/L (136-145); Total Protein 6.6 g/dL (6.4-8.2)
[2021-12-04 14:34] LABS: CRP < 0.2 mg/dL (0.0-0.9)
[2021-12-04 14:54] VITALS: PULSE 69; RESP 18; O2SAT 100
[2021-12-04 14:58] VITALS: PULSE 72; RESP 18; O2SAT 100
[2021-12-04 14:59] VITALS: BP 122/81; PULSE 73; RESP 16; TEMP 36.9; O2SAT 98
== END 2021-12-04 15:01 | disposition home or self-care (01) ==
PROVIDERS: Emergency Provider Emergency Medicine; PCP Family Medicine
DX: U07.1 COVID-19 (principal)
CPT/HCPCS: 36415; 71046; 80053; 83735; 83880; 85025; 86140; 87502; 94640; 99283; A9270; C9803; U0003; U0005

== ENCOUNTER 2022-03-29 09:02 | Emergency (ER) | payer OTHER, SELFPAY ==
--- NOTE | ~2022-03-29 | CT_ITS ---
EXAMINATION: CT cervical spine wo con DATE: 03/29/2022 09:53 INDICATION: Head injury TECHNIQUE: Computed tomography (CT) of the cervical spine was performed without intravenous contrast. The dose-length product (DLP) was 509.31 mGy-cm. Automated exposure control and iterative reconstruc tion technique were employed. COMPARISON: None FINDINGS: There is no fracture, dislocation, or subluxation. The vertebral body heights are normal. T here is mild loss of intervertebral disc space height throughout the cervical spine. There is mild mu ltilevel facet and uncovertebral joint osteoarthritis. The odontoid is intact. The prevertebral soft tissues are normal. IMPRESSION: 1. Mild cervical spondylosis without acute findings. Reviewed, dictated and finalized at location A.
--- NOTE | ~2022-03-29 | XR_ITS ---
EXAMINATION: XR ankle LT min 3V DATE: 03/29/2022 10:06 INDICATION: Left ankle pain TECHNIQUE: Anteroposterior, lateral, mortise, and additional oblique view of the ankle were obtained. COMPARISON: None. FINDINGS: There is heterotopic ossification distal to the lateral malleolus. The ankle mortise is int act. There is diffuse soft tissue swelling of ankle. Posterior and plantar calcaneal enthesophytes ar e noted. IMPRESSION: 1. Findings consistent with avulsion fracture of the lateral malleolus. Reviewed, dictated and finalized at location A.
--- NOTE | ~2022-03-29 | XR_ITS ---
EXAMINATION: XR chest 1V portable 03/29/2022 10:06 INDICATION: Status post fall. Chest pain. PROCEDURE: AP portable chest COMPARISON: 12/04/2021 FINDINGS: The lungs are clear. The cardiomediastinal silhouette is within normal limits. There are no pleural effusions. There is no pneumothorax suspected. IMPRESSION: 1: NO ACUTE CARDIOPULMONARY DISEASE. Reviewed, dictated and finalized at location B.
--- NOTE | ~2022-03-29 | CT_ITS ---
EXAMINATION: CT brain wo con INDICATION: Head injury COMPARISON: None TECHNIQUE: Standard unenhanced head CT. The dose-length product (DLP) was 605.33 mGy-cm. The mA was a djusted according to patient size. Iterative reconstruction technique was employed. FINDINGS: There is no acute intraparenchymal hemorrhage. No evidence of mass lesion. No evidence of a cute infarction. An old infarct of the left temporal lobe is again noted. There is mild periventricul ar and subcortical hypodensity probably related to small vessel ischemic disease. There is mild promi nence of the sulci and ventricles related to cerebral atrophy. Intracranial calcified cerebral athero sclerosis is noted. There are no extra-axial collections. There is no mass effect or midline shift. T he orbits and soft tissues are unremarkable. The visualized sinuses and mastoid air cells are well ae rated. IMPRESSION: 1. Old left temporal lobe infarct without acute intracranial abnormality. 2. Age related findings. Reviewed, dictated and finalized at location A.
--- NOTE | ~2022-03-29 | XR_ITS ---
EXAMINATION: XR foot LT min 3V DATE: 03/29/2022 10:06 INDICATION: Left foot pain TECHNIQUE: Dorsoplantar, lateral, and 2 oblique views of the left foot were obtained. COMPARISON: None. FINDINGS: Heterotopic ossification is seen distal to the lateral malleolus, consistent with avulsion fracture. There is a possible fracture of the sesamoid near the first metatarsophalangeal joint. Ther e is moderate osteoarthritis of the midfoot and in multiple interphalangeal joints. IMPRESSION: 1. Possible sesamoid fracture near the first metatarsophalangeal joint. 2. Probable avulsion fracture of the lateral malleolus. Reviewed, dictated and finalized at location A.
--- NOTE | ~2022-03-29 | XR_ITS ---
XR pelvis 1-2V 03/29/2022 10:07 Indication: Status post fall. Pelvic pain. Procedure: AP view of the pelvis Comparison: 09/16/2008 Findings: Stable appearance to lytic lesion involving the intertrochanteric region of the right femur , likely benign. Mild osteoarthritis of the hips. Sacral foramen are symmetric. No acute fracture or traumatic malalignment Impression: 1: No acute fracture. Reviewed, dictated and finalized at location B. Impression: 1: No acute fracture.
--- NOTE | ~2022-03-29 | XR_ITS ---
XR knee LT 3V 03/29/2022 10:07 Indication: Status post fall. Knee pain. Procedure: 3 views of the left knee Comparison: 10/26/2020 Findings: There is moderate tricompartment osteoarthritis of the left knee. No fracture or traumatic malalignment. No joint effusion. Lateral view is limited by rotation. Impression: 1: No acute fracture. 2: Moderate osteoarthritis of the left knee. Reviewed, dictated and finalized at location B. Impression: 1: No acute fracture. 2: Moderate osteoarthritis of the left knee.
--- NOTE | 2022-03-29 09:06 | ED.LOWEXIN ---
HPI - Extremity Injury (Lower) General Chief Complaint: Fall Stated Complaint: AMBULANCE Time Seen by Provider: 03/29/22 09:05 Source: patient Mode of arrival: EMS History of Present Illness HPI Narrative: 61-year-old male, alcoholic with history of anxiety, anemia, TIA, DVT, peripheral vascular disease, syncope secondary to orthostatic hypotension, status post ankle surgery, CVA with left-sided weakness on anticoagulation presented to the ER via EMS with -- alcoholism with last drink this morning -- status post fall this morning and last night -- questionable head injury with loss of consciousness -- left ankle and foot pain. The patient had ankle surgery on the left side. -- Abrasion of the toes with a 2 cm laceration on the plantar aspect of the 3rd toe -- left knee pain with swelling. He had meniscus repair 2 years ago on the same knee. Decreased range of motion left knee he was noted to have a systolic blood pressure in the 90s. He has a history of marginally low blood pressures. He was started on LR. MD complaint: knee injury, ankle injury and foot injury Injury: Left: ankle, foot and toes Type of Injury: blunt Place: home Severity: severe Relieving factors: nothing Exacerbating factors: nothing Context: fall Other symptoms: loss of consciousness and syncope Related Data Home Medications Medication Instructions Recorded Confirmed apixaban 5 mg tablet (Eliquis) 5 mg PO BID 01/15/20 12/04/21 armodafinil 200 mg tablet 200 mg PO QAM 06/15/20 12/04/21 buspirone 10 mg tablet 10 mg PO TID 06/15/20 12/04/21 duloxetine 60 mg capsule,delayed 90 mg PO DAILY 06/15/20 12/04/21 release sprinkle hydroxyzine HCl 25 mg tablet 25 mg PO HS 06/15/20 12/04/21 pantoprazole 40 mg tablet,delayed 40 mg PO QAM 06/15/20 12/04/21 release trazodone 100 mg tablet 150 mg PO HS 06/15/20 12/04/21 acetaminophen 500 mg capsule 500 mg PO PRN PRN Pain 06/16/20 12/04/21 donepezil 10 mg tablet 10 mg PO DAILY 12/04/21 12/04/21 pyridostigmine bromide 60 mg tablet 60 mg PO BID 12/04/21 12/04/21 quetiapine 50 mg tablet 50 mg PO DAILY 12/04/21 12/04/21 Allergies Allergy/AdvReac Type Severity Reaction Status Date / Time No Known Allergies Allergy Unknown Verified 12/04/21 13:47 Review of Systems Review of Systems: All systems reviewed & are unremarkable except as noted in HPI and below Constitutional: Constitutional: Reports as per HPI and Reports no additional constitutional complaints Eyes: Eyes: Reports as per HPI and Reports no additional eye complaints ENT: Reports system reviewed and no additional complaints, except as documented and Reports as per HPI Cardiovascular: Cardiovascular: Reports as per HPI and Reports no additional cardiovascular complaints Respiratory: Respiratory: Reports as per HPI and Reports no additional respiratory complaints Gastrointestinal: Gastrointestinal: Reports as per HPI and Reports no additional gastrointestinal complaints Genitourinary: Genitourinary: Reports no additional male genitourinary complaints Musculoskeletal: Musculoskeletal: Reports no additional musculoskeletal complaints, Reports arthralgias and Reports joint swelling Comments: Pain and swelling over the left ankle and foot. Decreased range of motion. Pain and swelling over the left knee with decreased range of motion. Integumentary/Breasts: Skin/Breast: Reports system reviewed and no additional complaints, except as docu Comments: Multiple old bruises Neurologic: Reports system reviewed and no additional complaints, except as documented and Reports as per HPI Psychiatric: Psychiatric: Reports no additional psychiatric complaints and Reports as per HPI Endocrine: Endocrine: Reports no additional endocrine complaints and Reports as per HPI Hematologic/Lymphatic: Hematologic/Lymphatic: Reports no additional hematologic/lymphatic complaints and Reports as per HPI Allergic/Immunologic: Allergic/Immunologic: Reports no additional
[2022-03-29 09:38] VITALS: BP 98/58; PULSE 65; RESP 20; TEMP 36.6; O2SAT 98
[2022-03-29 09:42] LABS: Basophils Absolute Auto 0.07 K/mm3 (0.00-0.10); Eosinophils Absolute Auto 0.24 K/mm3 (0.02-0.50); Eosinophils Percent Auto 3.3 % (1.0-6.0); Hematocrit 39.3 % (40.0-54.0); Hemoglobin 13.2 g/dL (14.0-18.0); Immature Granulocyte Absolute 0.01 K/mm3 (0.00-0.00); Immature Granulocyte Percent A 0.1 % (0.0-0.0); Lymphocytes Absolute Auto 2.53 K/mm3 (1.10-4.50); Lymphocytes Percent Auto 34.5 % (18.0-42.0); Mean Corpuscular HGB Conc 33.6 g/dL (32.0-36.0); Mean Corpuscular Hemoglobin 32.8 pg (27.0-31.0); Mean Corpuscular Volume 97.5 fL (78.0-102.0); Mean Platelet Volume 8.2 fl (8.7-11.0); Monocytes Absolute Auto 0.85 K/mm3 (0.10-0.90); Monocytes Percent Auto 11.6 % (2.0-11.0); Neutrophils Absolute Auto 3.6 K/mm3 (1.7-7.2); Neutrophils Percent Auto 49.5 % (50.0-70.0); Platelet Count Result 258 K/mm3 (150-420); Red Blood Count 4.03 M/mm3 (4.70-6.10); Red Cell Distribution Width 12.8 % (11.6-14.4); White Blood Count 7.3 K/mm3 (4.8-10.8)
[2022-03-29 10:01] LABS: Alanine Aminotransferase 16 U/L (16-63); Albumin Level 3.1 g/dL (3.4-5.0); Alkaline Phosphatase 96 U/L (46-116); Anion Gap 5 mmol/L (8-16); Aspartate Amino Transferase 24 U/L (15-37); Bilirubin,Total 0.3 mg/dL (0.00-1.00); Blood Urea Nitrogen 13 mg/dL (7-18); Calcium 8.3 mg/dL (8.5-10.1); Carbon Dioxide 30 mmol/L (21-32); Chloride 101 mmol/L (98-108); Estimated CRCL calculation 87 ml/min; Estimated Glomerular Filt Rate > 60; Glucose 98 mg/dL (70-99); Osmolality Calculated 282 mOsm/kg (285-295); Potassium 4.2 mmol/L (3.5-5.1); Sodium 136 mmol/L (136-145); Total Protein 6.6 g/dL (6.4-8.2)
[2022-03-29 10:02] LABS: Troponin I 8.4 ng/L (0.00-60.4)
[2022-03-29] MEDS: TETANUS,DIPHTHERIA,AC PERTUSSIS ADULT 0.5 ML (ADACEL) (11:00)
[2022-03-29 11:15] VITALS: BP 106/72; PULSE 71; RESP 20; TEMP 36.6; O2SAT 98
--- NOTE | 2022-03-29 11:25 | PC.NURSE ---
1100 PT TDAP GIVEN IN RIGHT DELTOID
== END 2022-03-29 11:15 | disposition home or self-care (01) ==
PROVIDERS: Emergency Provider Internal Medicine Critical Care Medicine; PCP Family Medicine
DX: S91.115A Laceration without foreign body of left lesser toe(s) without damage to nail, initial encounter (principal); S82.62XA Displaced fracture of lateral malleolus of left fibula, initial encounter for closed fracture; S92.812A Other fracture of left foot, initial encounter for closed fracture; S83.92XA Sprain of unspecified site of left knee, initial encounter; W19.XXXA Unspecified fall, initial encounter
CPT/HCPCS: 12001; 36415; 70450; 71045; 72125; 72170; 73562; 73610; 73630; 80053; 84484; 85025; 90471; 90715; 99284

== ENCOUNTER 2022-04-09 10:00 | Emergency (ER) | payer OTHER, SELFPAY ==
--- NOTE | ~2022-04-09 | XR_ITS ---
EXAMINATION: XR chest 1V portable DATE: 04/09/2022 10:39 INDICATION: Chest pain. TECHNIQUE: A single frontal view of the chest was obtained. COMPARISON: Chest single view 03/29/2022, CT abdomen and pelvis 06/21/2020 FINDINGS: The chest demonstrates clear lungs without pneumonia, pleural effusion, or pneumothorax. Th e heart size is normal. There is an old healed left rib fracture. IMPRESSION: 1. No acute cardiopulmonary disease. Reviewed, dictated and finalized at location A.
[2022-04-09 10:03] VITALS: BP 123/79; PULSE 67; RESP 18; TEMP 36.2; O2SAT 97
--- NOTE | 2022-04-09 10:17 | ECG_ITS ---
Measurements Intervals [place] Rate: 64 P: 46 MS: 176 QRS: 71 QRSD: 96 T: 35 QT: 410 QTc: 423 Interpretive Statements SINUS RHYTHM COMPARED TO ECG 06/15/2020 14:21:30 NO SIGNIFICANT CHANGES Electronically Signed On 04-09-2022 11:45:01 CDT by Elijah Davies M.D.
[2022-04-09 10:26] VITALS: O2SAT 97
--- NOTE | 2022-04-09 10:33 | ED.CHESTPAIN ---
HPI - Chest Pain General Chief Complaint: Chest Pain Stated Complaint: AMBULANCE Time Seen by Provider: 04/09/22 10:04 Source: patient, EMS and RN notes reviewed Mode of arrival: EMS Limitations: no limitations History of Present Illness MD complaint: chest pain Pertinent past history: coronary artery disease Onset (ago): hour(s) (2) Timing of current episode: episodic Prior episodes: Yes Onset: during rest Pain location: left chest Pain radiation: none Severity: mild Pain scale (0-10): 0 Quality: other (pain-free in the ED.) Relieving factors: nothing Exacerbating factors: nothing Associated symptoms: other (none) Treatment prior to arrival: aspirin Risk Factors Pulmonary embolism risk factors: history of pulmonary embolism Related Data Home Medications Medication Instructions Recorded Confirmed apixaban 5 mg tablet (Eliquis) 5 mg PO BID 01/15/20 04/09/22 armodafinil 200 mg tablet 200 mg PO QAM 06/15/20 04/09/22 buspirone 10 mg tablet 10 mg PO TID 06/15/20 04/09/22 duloxetine 60 mg capsule,delayed 90 mg PO DAILY 06/15/20 04/09/22 release sprinkle hydroxyzine HCl 25 mg tablet 25 mg PO HS 06/15/20 04/09/22 pantoprazole 40 mg tablet,delayed 40 mg PO QAM 06/15/20 04/09/22 release trazodone 100 mg tablet 150 mg PO HS 06/15/20 04/09/22 acetaminophen 500 mg capsule 500 mg PO PRN PRN Pain 06/16/20 04/09/22 donepezil 10 mg tablet 10 mg PO DAILY 12/04/21 04/09/22 pyridostigmine bromide 60 mg tablet 60 mg PO BID 12/04/21 04/09/22 quetiapine 50 mg tablet 50 mg PO DAILY 12/04/21 04/09/22 Allergies Allergy/AdvReac Type Severity Reaction Status Date / Time No Known Allergies Allergy Unknown Verified 04/09/22 10:53 Review of Systems Review of Systems: All systems reviewed & are unremarkable except as noted in HPI and below Constitutional: Constitutional: Reports no additional constitutional complaints Eyes: Eyes: Reports no additional eye complaints ENT: Reports system reviewed and no additional complaints, except as documented Cardiovascular: Cardiovascular: Reports no additional cardiovascular complaints and Reports chest pain Respiratory: Respiratory: Reports no additional respiratory complaints Gastrointestinal: Gastrointestinal: Reports no additional gastrointestinal complaints Musculoskeletal: Musculoskeletal: Reports no additional musculoskeletal complaints Integumentary/Breasts: Skin/Breast: Reports system reviewed and no additional complaints, except as docu Neurologic: Reports system reviewed and no additional complaints, except as documented Psychiatric: Psychiatric: Reports no additional psychiatric complaints Endocrine: Endocrine: Reports no additional endocrine complaints Hematologic/Lymphatic: Hematologic/Lymphatic: Reports no additional hematologic/lymphatic complaints Allergic/Immunologic: Allergic/Immunologic: Reports no additional allergic/immunologic complaints PMFSH Past Medical History Medical History Anxiety Brain TIA History of deep vein thrombosis History of fracture of clavicle Iron deficiency anemia Peripheral vascular disease Syncope due to orthostatic hypotension Surgical History Surgical History History of ankle surgery ORIF right ankle tib-fib fracture History of gastric bypass Hx laparoscopic cholecystectomy Hx of cholecystectomy S/P arthroscopic surgery of left knee Family History Family History Mother Breast cancer Father Suicide Social History Social History Social History: the patient is . 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 He has 3 biological children 1 being a special needs child. Who is 11 years old. The patient is working on getting disability. The patient stated that he wants his
[2022-04-09 10:38] LABS: Basophils Absolute Auto 0.03 K/mm3 (0.00-0.10); Basophils Percent Auto 0.5 % (0.0-1.0); Eosinophils Absolute Auto 0.21 K/mm3 (0.02-0.50); Eosinophils Percent Auto 3.2 % (1.0-6.0); Hemoglobin 12.5 g/dL (14.0-18.0); Immature Granulocyte Absolute 0.02 K/mm3 (0.00-0.00); Immature Granulocyte Percent A 0.3 % (0.0-0.0); Lymphocytes Absolute Auto 1.93 K/mm3 (1.10-4.50); Lymphocytes Percent Auto 29.3 % (18.0-42.0); Mean Corpuscular HGB Conc 33.8 g/dL (32.0-36.0); Mean Corpuscular Volume 97.6 fL (78.0-102.0); Mean Platelet Volume 8.7 fl (8.7-11.0); Monocytes Absolute Auto 0.85 K/mm3 (0.10-0.90); Monocytes Percent Auto 12.9 % (2.0-11.0); Neutrophils Absolute Auto 3.6 K/mm3 (1.7-7.2); Neutrophils Percent Auto 53.8 % (50.0-70.0); Platelet Count Result 213 K/mm3 (150-420); Red Blood Count 3.79 M/mm3 (4.70-6.10); Red Cell Distribution Width 13.5 % (11.6-14.4); White Blood Count 6.6 K/mm3 (4.8-10.8)
[2022-04-09 10:45] LABS: Base Excess ABG 1.9 mmol/L (0-2); HCO3 ABG 25.5 mmol/L (23-29); Modified Allen's Test Pass; Oxygen Content ABG 17.8 %vol (16.0-22.0); Oxygen Saturation ABG 94.2 % (95-97); Oxyhemoglobin 93.7 % (94-100); Site Drawn RIGHT RADIAL; Total Hemoglobin 13.5 g/dL (12.0-18.0); pH ABG 7.46 (7.35-7.45)
[2022-04-09 10:46] LABS: Device ROOM AIR
[2022-04-09 10:52] LABS: Partial Thromboplastin Time 26.2 SEC (23.90-30.70); Prothrombin Time 11.4 Seconds (9.50-12.10)
[2022-04-09 10:58] VITALS: BP 106/69; PULSE 67; RESP 20; O2SAT 96
[2022-04-09 11:01] LABS: Alanine Aminotransferase 19 U/L (16-63); Albumin Level 3.2 g/dL (3.4-5.0); Alkaline Phosphatase 96 U/L (46-116); Anion Gap 6 mmol/L (8-16); Aspartate Amino Transferase 19 U/L (15-37); Bilirubin,Total 0.7 mg/dL (0.00-1.00); Blood Urea Nitrogen 8 mg/dL (7-18); Calcium 8.7 mg/dL (8.5-10.1); Carbon Dioxide 29 mmol/L (21-32); Chloride 101 mmol/L (98-108); Estimated CRCL calculation 83 ml/min; Estimated Glomerular Filt Rate > 60; Glucose 98 mg/dL (70-99); NT Pro B Type Natriuretic Pept 252 pg/mL (0-125); Osmolality Calculated 280 mOsm/kg (285-295); Potassium 3.8 mmol/L (3.5-5.1); Sodium 136 mmol/L (136-145); Total Protein 6.5 g/dL (6.4-8.2)
[2022-04-09 11:30] VITALS: BP 109/69; PULSE 56; O2SAT 98
[2022-04-09 12:00] VITALS: BP 114/74; PULSE 60; O2SAT 96
--- NOTE | 2022-04-09 14:02 | PC.NURSE ---
On 04/09/22, the student, [ADRIAN SHAH ], provided care and completed [facility] documentation on this patient. I have reviewed the student's documentation and agree with the findings.
== END 2022-04-09 12:20 | disposition home or self-care (01) ==
PROVIDERS: Emergency Provider Emergency Medicine; PCP Family Medicine
DX: R07.89 Other chest pain (principal)
CPT/HCPCS: 36415; 36600; 71045; 80053; 82805; 83880; 84484; 85025; 85610; 85730; 93005; 99284

== ENCOUNTER 2022-12-27 13:30 | Emergency (ER) | payer OTHER, SELFPAY ==
[2022-12-27 13:30] VITALS: BP 117/97; PULSE 106; RESP 20; TEMP 37.1; O2SAT 99
--- NOTE | 2022-12-27 13:37 | ED.MALEGU ---
HPI - Male Genitourinary General Chief complaint: Skin/Abscess/Foreign Body Stated complaint: abscess to groin Time Seen by Provider: 12/27/22 13:37 History of Present Illness HPI Narrative: 62-year-old male patient is here with complaints of pimple like swelling to the penis for last 3 days. He states that he tried to squeeze it and drain it and it has become more swollen and red. He has not really noticed a rash anywhere else. He is not sexually active her last 15 years and has had no prior sexually transmitted diseases. Patient is not a diabetic. He has no difficulty with urination. Related Data Home Medications Medication Instructions Recorded Confirmed apixaban 5 mg tablet (Eliquis) 5 mg PO BID 01/15/20 04/09/22 armodafinil 200 mg tablet 200 mg PO QAM 06/15/20 04/09/22 buspirone 10 mg tablet 10 mg PO TID 06/15/20 04/09/22 duloxetine 60 mg capsule,delayed 90 mg PO DAILY 06/15/20 04/09/22 release sprinkle hydroxyzine HCl 25 mg tablet 25 mg PO HS 06/15/20 04/09/22 pantoprazole 40 mg tablet,delayed 40 mg PO QAM 06/15/20 04/09/22 release trazodone 100 mg tablet 150 mg PO HS 06/15/20 04/09/22 acetaminophen 500 mg capsule 500 mg PO PRN PRN Pain 06/16/20 04/09/22 donepezil 10 mg tablet 10 mg PO DAILY 12/04/21 04/09/22 pyridostigmine bromide 60 mg tablet 60 mg PO BID 12/04/21 04/09/22 quetiapine 50 mg tablet 50 mg PO DAILY 12/04/21 04/09/22 Allergies Allergy/AdvReac Type Severity Reaction Status Date / Time No Known Allergies Allergy Unknown Verified 04/09/22 10:53 Review of Systems Review of Systems: All systems reviewed & are unremarkable except as noted in HPI and below PMFSH Past Medical History Medical History Anxiety Brain TIA History of deep vein thrombosis History of fracture of clavicle Iron deficiency anemia Peripheral vascular disease Syncope due to orthostatic hypotension Surgical History Surgical History History of ankle surgery ORIF right ankle tib-fib fracture History of gastric bypass Hx laparoscopic cholecystectomy Hx of cholecystectomy S/P arthroscopic surgery of left knee Family History Family History Mother Breast cancer Father Suicide Social History Social History Social History: the patient is . 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 He has 3 biological children 1 being a special needs child. Who is 11 years old. The patient is working on getting disability. The patient stated that he wants his sister Leti to be his durable power senior attorney for healthcare. He desires to be a full code. He denies using any alcohol. He said that he had to go to rehab in the past for alcohol abuse but only drinks once or twice a week any drinks beer. He is a lifelong nonsmoker does needs any marijuana or illicit drugs. Smoking status: Never smoker Alcohol intake: current Drinks per week: 6 Substance use: never Living arrangements: with family Occupation/Education: unemployed Gender identity (if verbalized by the patient): Male Sexual Orientation (if Verbalized by the Patient): Straight or Heterosexual Spiritual care concerns: No Exam Narrative: Alert male patient in no acute distress. Stable vital signs. Patient is afebrile. No obvious respiratory distress. Neurologic examination is normal with regards to patient's spee,, gait and ambulation. Motor and sensory seems to be intact. Skin is warm and dry color is normal. No significant rashes are noted. The patient does have a superficial abrasion to the right knee. Genitalia appears to be normal without any obvious swelling deformity or redness or rash. There is a 1 cm area of redness on the ventral aspect of the shaft of the penis consistent with an ingrown hair f
== END 2022-12-27 14:07 | disposition home or self-care (01) ==
LOC: CHSED 13:57
PROVIDERS: Emergency Provider Emergency Medicine; PCP Family Medicine
DX: L73.9 Follicular disorder, unspecified (principal); Z86.73 Personal history of transient ischemic attack (TIA), and cerebral infarction without residual deficits; Z86.718 Personal history of other venous thrombosis and embolism
CPT/HCPCS: 99283

== ENCOUNTER 2023-06-11 16:05 | Outpatient (CLI) | payer MEDICARE, SELFPAY ==
--- NOTE | ~2023-06-11 | XR_ITS ---
EXAMINATION: XR chest 2V Exam Date/Time: 06/11/2023 16:20 CDT HISTORY: R06.02 - Shortness of breath Comparison: . RESULT: Lines, tubes, and devices: None. Lungs and pleura: Clear. Cardiomediastinal silhouette: Stable. Other: No acute upper abdominal finding. Old healed left lateral sixth rib fracture. Minimally displ aced fractures of the right fifth and sixth lateral ribs, with the suggestion of healing change. IMPRESSION: No acute cardiopulmonary process. Presumed subacute/chronic right fifth and sixth lateral rib fractur es, correlate for point tenderness. Reviewed, dictated and finalized at location K. IMPRESSION: No acute cardiopulmonary process. Presumed subacute/chronic right fifth and six th lateral rib fractures, correlate for point tenderness.
== END 2023-06-11 16:06 | disposition home or self-care (01) ==
LOC: CHSIMG 16:08
PROVIDERS: PCP Family Medicine; Visit Provider Family Medicine
DX: R06.02 Shortness of breath (principal); S22.41XA Multiple fractures of ribs, right side, initial encounter for closed fracture
CPT/HCPCS: 71046

== ENCOUNTER 2023-06-19 12:42 | Outpatient (CLI) | payer MEDICARE, SELFPAY ==
--- NOTE | ~2023-06-19 | CT_ITS ---
Non-contrast Head CT History: Headache, dizziness COMPARISON: 03/29/2022 Technique: Axial non-contrast imaging of the brain was performed. Dose reduction technique was used on this scan by utilizing automated exposure control and iterative reconstruction technique. The dose -length product (DLP) was 605.33 mGy-cm. Findings: There is no evidence of intracranial hemorrhage, mass lesion, or acute infarct. Stable foc al chronic left temporal lobe infarct. The ventricles and subarachnoid spaces are normal in size. T he calvarium appears normal. The visualized paranasal sinuses and mastoid air cells are clear. Impression: No acute abnormality seen. Reviewed, dictated and finalized at location . YMAN Impression: No acute abnormality seen.
== END 2023-06-19 12:43 | disposition home or self-care (01) ==
LOC: CHSIMG 12:45
PROVIDERS: PCP Family Medicine
DX: R51.9 Headache, unspecified (principal); R42 Dizziness and giddiness; Z86.73 Personal history of transient ischemic attack (TIA), and cerebral infarction without residual deficits
CPT/HCPCS: 70450